=== PATIENT | female | born 1955 | race Caucasian/White ===

== ENCOUNTER 2016-12-09 16:02 | Inpatient (IN) ==
[2016-12-09] MEDS ORDERED: Nitroglycerin 0.4 MG TAB.SUBL SL ONE (16:17)
[2016-12-09] MEDS ORDERED: Aspirin 81 MG TAB.CHEW PO ONE (16:17)
[2016-12-09] MEDS ORDERED: 0.9 % Sodium Chloride 500 ML IVC ONE (16:17)
[2016-12-09] MEDS ORDERED: Ondansetron 4 MG/2 ML VIAL IVP ONE (16:18)
[2016-12-09 16:31] LABS: Basophils # 0.1 K/mcL (0.0-0.2); Basophils % 0.9 %; Eosinophils # 0.4 K/mcL (0.0-0.6); Eosinophils % 4.3 %; Hematocrit 43.5 % (35.3-44.9); Hemoglobin 14.2 g/dL (11.5-15.4); Immature Granulocytes % 0.2 % (0-4); Lymphocytes # 4.6 K/mcL (0.6-4.6); Lymphocytes % 50.3 %; Mean Corpuscular HGB Conc 32.6 g/dL (31.6-35.5); Mean Corpuscular Hemoglobin 29.6 pg (28.0-33.3); Mean Corpuscular Volume 90.8 fL (83.0-100.0); Monocytes # 0.7 K/mcL (0.0-1.3); Monocytes % 7.8 %; Neutrophils # 3.4 K/mcL (1.6-8.9); Platelet Count 300 K/mcL (140-400); Red Blood Count 4.79 M/mcL (3.82-4.97); Red Cell Distribution Width 12.8 % (11.5-14.5); Segmented Neutrophils % 36.5 %
[2016-12-09] MEDS ORDERED: *HR* Ticagrelor 90 MG TABLET PO ONE (16:33)
[2016-12-09 16:40] LABS: Prothrombin Time 10.6 Seconds (9.4-12.1)
[2016-12-09 16:45] LABS: BUN/Creatinine Ratio 19 (6-26); Blood Urea Nitrogen 17 mg/dL (7-20); Calcium 9.8 mg/dL (8.6-10.8); Carbon Dioxide 29 mEq/L (19-29); Chloride 106 mEq/L (98-109); Glucose 154 mg/dL (70-99); Lipase 53 Units/L (8-78); Osmolality,Calculated 297 (280-300); Potassium 3.9 mEq/L (3.5-4.5); Sodium 141 mEq/L (136-145); eGFR For African Americans > 60 (> 60); eGFR For Non-African Americans > 60 (> 60)
[2016-12-09] MEDS ORDERED: Nitroglycerin 25 MG/250 ML INFUS..BTL IVC SCH (16:45)
[2016-12-09] MEDS ORDERED: *HR* Promethazine 25 MG/ML VIAL IVP ONE (17:06)
[2016-12-09 17:11] LABS: Basophils # 0.1 K/mcL (0.0-0.2); Basophils % 0.8 %; Eosinophils # 0.3 K/mcL (0.0-0.6); Hematocrit 39.1 % (35.3-44.9); Hemoglobin 12.7 g/dL (11.5-15.4); Immature Granulocytes % 0.2 % (0-4); Lymphocytes % 48.7 %; Mean Corpuscular HGB Conc 32.5 g/dL (31.6-35.5); Mean Corpuscular Hemoglobin 29.7 pg (28.0-33.3); Mean Corpuscular Volume 91.4 fL (83.0-100.0); Mean Platelet Volume 10.4 fL (9.4-12.4); Monocytes # 0.7 K/mcL (0.0-1.3); Monocytes % 7.9 %; Neutrophils # 3.2 K/mcL (1.6-8.9); Platelet Count 287 K/mcL (140-400); Red Blood Count 4.28 M/mcL (3.82-4.97); Red Cell Distribution Width 12.9 % (11.5-14.5); Segmented Neutrophils % 38.4 %
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
--- NOTE | 2016-12-09 18:14 | Pre-Sedation Evaluation ---
Pre-sedation evaluation - Pre-sedation checklist Date of procedure: 12/09/16 Procedure: [facility] Recent Vitals: Last Vital Signs Temp 97.8 F 12/09/16 16:16 Pulse 62 12/09/16 18:12 Resp 16 12/09/16 18:12 BP 116/83 12/09/16 18:12 Pulse Ox 98 12/09/16 18:12 H&P (including ROS) documented in medical record: Yes Previous reaction to sedatives/anesthetics: No Dietary Status: NPO after Midnight Airway Assessment: Patient can open mouth completely, TMJ function normal ASA Classification *see protocol: CLASS II-Mild systemic disease Plan of Care: Pt appropriate candidate for procedure/moderate/conscious sedation , Risks/benefits of procedure/sedation discussed w/ patient/family
[2016-12-09] MEDS ORDERED: Nitroglycerin 1,000 MCG/10 ML VIAL IV ONE (18:16)
[2016-12-09] MEDS ORDERED: *HR* FentaNYL (PF) 100 MCG/2 ML VIAL ONE (18:16)
[2016-12-09] MEDS ORDERED: *HR* Heparin 10,000 UNIT/10 ML VIAL ONE (18:16)
[2016-12-09] MEDS ORDERED: *HR* Midazolam HCl 2 MG/2 ML VIAL ONE (18:16)
[2016-12-09] MEDS ORDERED: Heparin 1,000 UNITS/500 mL NS 500 ML ONE (18:16)
[2016-12-09] MEDS ORDERED: 0.9 % Sodium Chloride 1,000 ML ONE ×2 (18:16→18:47)
--- NOTE | 2016-12-09 18:22 | Cardiology History & Physical ---
Date of Encounter: 12/09/16 Time of Encounter: 18:00 Assessment and Plan (1) NSTEMI (non-ST elevated myocardial infarction) Current Visit: Yes Status: Acute Ongoing symptoms with regional basal inferior WMA and ischemia on EKG. Emergent LHC. Suspect RCA occlusion. Aspirin, brilinta, heparin. A/R/B of LHC discussed including 1% chance of CVA/CABG/ANGELA/bleeding/contrast reaction. Pt aware and agreeable with proceeding. The assessment and plan as outlined above was discussed with the patient and/or family members who expressed understanding and agreement. All questions were answered. (2) Nicotine dependence Current Visit: Yes Status: Acute nicotine patch. cessation counseled. The assessment and plan as outlined above was discussed with the patient and/or family members who expressed understanding and agreement. All questions were answered. Qualifiers: Nicotine product type: cigarettes Substance use status: uncomplicated Qualified Code(s): F17.210 - Nicotine dependence, cigarettes, uncomplicated (3) Acute electrocardiogram changes Current Visit: Yes Status: Acute stat echo ordered The assessment and plan as outlined above was discussed with the patient and/or family members who expressed understanding and agreement. All questions were answered. History of Present Illness Chief complaint: chest pain HPI: Ms. Vogel is a 61 year old female with no previous cardiac history presenting with sudden onset severe retrosternal chest discomfort while going to a movie. It was associated with dyspnea and diaphoresis. It is minimally improved with NTG/aspirin/brilinta given in the ED. EKG showed ischemia but no diagnostic STEMI. STAT TTE ordered with a focal basal inferior wall hypokinesis, and with ongoing symptoms, brought emergently to the drop crew laborer. Past Med Surg Social Fam HX - Past Medical History Medical history: migraine Psychiatric history: no psych history - Past Surgical History Surgical History: - Social History Smoking Status: Current every day smoker Smokeless Tobacco Status: No Alcohol use: none Drug use: none Medications and Allergies Amitriptyline [Elavil] 20 mg PO HS 12/09/16 [History] Oxycodone HCl/Acetaminophen [Percocet 5-325 mg Tablet] 1 each PO Q8H PRN [History] Propranolol HCl [Inderal LA] 120 mg PO DAILY 12/09/16 [History] SUMAtriptan succinate [Imitrex] 50 mg PO DAILY PRN 12/09/16 [History] Allergies codeine Allergy (Verified 08/21/16 14:35) Nausea All Systems Review: A 10-system review of systems was performed and is negative for pertinent findings except as documented above in the HPI. - Constitutional Constitutional: no chills, no fever(s) - EENT Eyes: no blurred vision, no loss of vision Nose, mouth and throat: no bleeding gums, no epistaxis - Cardiovascular Cardiovascular: chest pain at rest, chest pain with exertion - Respiratory Respiratory: no hemoptysis, no wheezing - Gastrointestinal Gastrointestinal: no hematemesis, no hematochezia - Genitourinary Genitourinary: no dysuria, no hematuria - Musculoskeletal Musculoskeletal: no back pain, no myalgias - Integumentary Integumentary: no erythema, no rash - Neurological Neurological: no abnormal speech, no memory loss - Psychiatric Psychiatric: no anxiety, no depression - Hematological/Lymphatic Hematologic/Lymphatic: no easy bleeding, no easy bruising Physical Examination Vital Signs, Last 4 Hours Temp Pulse Resp BP Pulse Ox 12/09/16 18:12 62 16 116/83 98 12/09/16 18:02 63 18 115/83 99 12/09/16 17:13 63 16 118/69 95 12/09/16 16:16 97.8 F 60 18 150/70 96 General: Conversant, Other (distressed) HEENT: Atraumatic Neck: No JVD Cardiac: Reg Rate and Rhythm Lungs: Normal Breath Sounds Neuro: Alert and responsive, No focal deficits noted Abdomen: Soft Skin: No rashes noted on visualized skin Musculoskeletal: No Chest Wall Tenderness Extremities: No Edema Results 12/09/16 16:49 12/09/16 16:20 Lab Results 12/09/16 12/09/16 12/09/16 16:20 16:20 16:20 WBC 9.2 Hgb 14.2 Hct 43.5 Plt Count 300 INR 1.0 APTT 29.0 Sodium Potassium Chloride Carbon Dioxide BUN Creatinine Glucose Calcium Troponin I B-Natriuretic Peptide 37 Lipase 12/09/16 12/09/16 12/09/16 16:20 16:20 16:49 WBC 8.3 Hgb 12.7 D Hct 39.1 Plt Count 287 INR APTT Sodium 141 Potassium 3.9 Chloride 106 Carbon Dioxide 29 BUN 17 Creatinine 0.90 Glucose 154 H Calcium 9.8 Troponin I 0.06 H* B-Natriuretic Peptide Lipase 53 - EKG Interpretation EKG results cardiology: sinus rhythm (ischemic changes noted)
[2016-12-09] MEDS ORDERED: Ondansetron 4 MG/2 ML VIAL IVP PRN ×2 (18:29→19:41)
[2016-12-09] MEDS ORDERED: *HR* Morphine 2 MG/ML SYRINGE IVP PRN ×2 (18:29→19:41)
[2016-12-09] MEDS ORDERED: DOPamine Premix 0 MG/0 ML BAG ONE (18:45)
[2016-12-09] MEDS ORDERED: Heparin 25,000 UNIT/500 ML D5W 25,000 UNIT/500 ML MLS IVC SCH (19:15)
[2016-12-09] MEDS ORDERED: *HR* Heparin 5,000 UNIT/ML VIAL IVP ONE (19:15)
[2016-12-09] MEDS ORDERED: *HR* Heparin 5,000 UNIT/ML VIAL IVP PRN ×2 (19:15)
[2016-12-09] MEDS ORDERED: Nitroglycerin 0.4 MG TAB.SUBL SL PRN (19:16)
[2016-12-09] MEDS ORDERED: *HR* OxyCODONE/APAP 5/325 TABLET PO PRN ×2 (19:16→23:07)
[2016-12-09] MEDS ORDERED: Acetaminophen 325 MG TABLET PO PRN (19:16)
[2016-12-09] MEDS ORDERED: Sennosides 8.6 MG TABLET PO PRN (19:16)
[2016-12-09] MEDS ORDERED: *HR* Atropine Sulfate 1 MG/10 ML SYRINGE ONE ×2 (19:20→22:00)
--- NOTE | 2016-12-09 19:30 | Invasive Diagnostic Lab Proc ---
Name: Watson Vogel Date of Study: 12/09/2016 Date: 1955 Ht: 63.0in Medical Record#: [id number] Age: 61 Wt: 154.32lb Gender: Female BSA: 1.73 Order #: [id number] BMI: 27.34 Physicians Procedure Physician: Jose Domínguez MD, [facility] Referring MD: Referring MD: Staff Name Position Time In Sites, Dai RT (R) Monitor 06:46 PM Ericka Carbajal RT (R) Scrub 06:46 PM Ling Martinez RN Tire Inspector 06:46 PM Nestor Nunez RN Tire Inspector 06:46 PM Indications Indication Non-Stemi Procedures Performed Procedure L HRT ARTERY/VENTRICLE ANGIO PRQ CARD REVASC VT 1 VSL Pre-Procedure Checklist Informed consent is complete signed and on chart. H&P is on chart. ID band is on and ID verified with patient. Patient NPO for procedure The procedure was described for the patient and questions were answered. Blood Pressure: 116/83 ECG is on chart. Rhythm: NSR Plan of Care Patient will tolerate the procedure without complications. Adequate level of comfort will be maintained. Hemodynamics will remain stable Patient will recover from procedure without complications. Respiratory function will be maintained. Cardiac rhythm will remain stable. Patient temperature will be maintained. Patient and/or family have verbalized understanding of the procedure. Patient Education Chief Complaint/Reason for Test: Cardiac Cath Developmental Category: Adult (18-64 years) Developmentally Appropriate for Age: Yes Learning Barriers: None Education Needs: Procedure Education Method: Verbal Information Taught: Cardiac Cath Educational Evaluation: Able to repeat information Intravenous Access Time IV Size Location DC'd Fluid/Drip Rate Units RN 20g 1 /" Patent On Arrival Lt Antecubital 0.9NaCl 25 ml/hr Nestor Nunez RN Allergies codeine Vital Signs Time BP (mmHg) HR (bpm) O2 Sat. RR (bpm) LOC 116 / 83 62 95 % 16 5 = Fully awake and oriented or at pre-proc level 06:48 PM 132 / 114 108 % 26 06:53 PM 108 / 46 75 95 % 37 07:02 PM 98 / 44 57 97 % 19 07:11 PM 95 / 47 78 97 % 23 Procedural Medications Time Medication Dose Units Method Given By 06:48 PM Versed 2 mg Intravenous Nestor Nunez RN 06:48 PM Fentanyl 25 mcg Intravenous Nestor Nunez RN 06:49 PM Lidocaine 2% 14 ml Subcutaneous Jose Domínguez MD, FACC 06:51 PM Lidocaine 2% 6 ml Subcutaneous Jose Domínguez MD, FACC 06:52 PM Oxygen 2 L/min nasal cannula Nestor Nunez RN 06:57 PM Heparin 4000 units Intravenous Nestor Nunez RN ASA Classification: CLASS II- Mild systemic disease (i.e. well-controlled diabetes, hypertension, asthma, cigarette smoking) Mandi Score Preprocedure Postprocedure Activity 2- Moves 4 extremities sustained head lift Activity 2- Moves 4 extremities sustained head lift Circulation 2- SBP +/= 20 points of pre-anesthetic level Circulation 2- SBP +/= 20 points of pre-anesthetic level Consciousness 2- Awake and alert oriented x 3 Consciousness 2- Awake and alert oriented x 3 O2 Saturation 2- Able to maintain O2 satruation of 92% on room air O2 Saturation 2- Able to maintain O2 satruation of 92% on room air Respiratory 2- Able to deep breathe and cough well Respiratory 2- Able to deep breathe and cough well Total Score 10 Total Score 10 Contrast Agent: Isovue Diagnostic Contrast: 69 ml Total Contrast: 69 ml Fluoro Dose: 141 mGy Procedure Log Time Note Enter By 06:21 PM CathStat 06:43 PM Vitals capture started with the following parameters, Patient=Adult, Interval=5 min, Initial Ilbbsqpg=941 mmHg, Deflation Rate=5 mmHg, Cuff placed on Right Arm 06:44 PM Recorded ECG: HR=49 Condition=Condition 1 06:45 PM Recorded ECG: HR=97 Condition=Condition 1 06:45 PM Vitals capture started with the following parameters, Patient=Adult, Interval=5 min, Initial Vlqfzmjp=953 mmHg, Deflation Rate=5 mmHg, Cuff placed on Right Arm 06:45 PM Pt arrived to laboratory machinist 2 at 18:45 tsites 06:46 PM Dai Patel RT (R) Position: Monitor Time in: 18:46 tsites 06:46 PM Ercika Carbajal RT (R) Position: Scrub Time in: 18:46 tsites 06:46 PM Ling Martinez RN Position: Tire Inspector Time in: 18:46 tsites 06:46 PM Nestor Nunez RN Position: Tire Inspector Time in: 18:46 tsites 06:46 PM Patient charges- Angio tray pack, Navilyst 3mm J, Pulse Oximetry and ACIST tubing and transducer tsites 06:46 PM Case Delayed No tsites 06:47 PM Vitals capture stopped. 06:47 PM Hair removed from procedure site in procedure lab using clippers. Right wrist and right groin prepped with Chloraprep by Ling Martinez RN, safety strap applied then patient was draped. Skin intact. tsites 06:47 PM NIBP STAT measurement started. 06:47 PM Physician arrived 18:47 tsites 06:47 PM Procedure start 18:47 tsites 06:47 PM Time out performed according to hospital policy tsites 06:47 PM Clinical Presentation: Non-STEMI tsites 06:48 PM Time: 18:48 Versed 2 mg Intravenous Given by Nestor Nunez RN tsites 06:48 PM Time: 18:48 Fentanyl 25 mcg Intravenous Given by Nestor Nunez RN tsites 06:48 PM ZO=560 bpm, ZSQZ=704/114 mmhg, Resp=26 B/min 06:49 PM Pressure channel 1 zero failed. 06:49 PM Pressure channel 1 zero failed. 06:49 PM Pressure channel 1 zero failed. 06:49 PM Pressure channel 1 zeroed. 06:49 PM Time: 18:49 14 ml Lidocaine 2% to right groin Subcutaneous Given by Jose Domínguez MD, [facility] tsites 06:52 PM Time: 18:51 6 ml Lidocaine 2% to right groin Subcutaneous Given by Jose Domínguez MD, [facility] tsites 06:52 PM NIBP STAT measurement started. 06:52 PM Time: 18:52 Oxygen on at 2 L/min per nasal cannula by Nestor Nunez RN tsites 06:53 PM HR=75 bpm, IOFL=006/46 mmhg, SpO2=95 %, Resp=37 B/min 06:53 PM 5Fr FL 4 catheter inserted over the wire [facility] tsites 06:53 PM 0.035 145cm Navilyst 3mmJ wire [id number] tsites 06:53 PM Wire removed tsites 06:54 PM Recorded Pressure: Ao, HR=71, Condition=Condition 1 (Aorta) Ao 115/35/63 06:54 PM LCA angiography performed in multiple views. tsites 06:55 PM wire reinserted catheter removed tsites 06:56 PM Inflation device was opened. tsites 06:56 PM 6Fr JR 4 Runway guide catheter was used to cannulate the PCI vessel successfully. reused? No tsites 06:56 PM RCA angiography performed in multiple views. tsites 06:57 PM Time: 18:57 Heparin 4000 units Intravenous Given by Nestor Nunez RN tsites 06:57 PM PCI Status Urgent tsites 06:57 PM PCI Indication: PCI for high risk Non-STEMI or unstable angina tsites 06:57 PM PCI lesion in Mid RCA. tsites 06:57 PM .[address] [place] 182cm guide wire across target lesion- successful. reused? No tsites 06:58 PM 2.25 mm x 15 mm Emerge Monorail balloon across target lesion- successful. reused? No tsites 06:59 PM Balloon inflated @ 8 judy for 15 seconds tsites 06:59 PM NIBP STAT measurement started. 07:00 PM Lesion found in Mid RCA. Pre Stenosis: 99 Pre MARY Flow: 2: Partial Flow/Perfusion (> 1 but < 3) tsites 07:00 PM Lesion found in Proximal LAD. Pre Stenosis: 80 Pre MARY Flow: tsites 07:00 PM Lesion found in Mid LAD. Pre Stenosis: 70 Pre MARY Flow: tsites 07:01 PM Lesion found in 1st Marginal. Pre Stenosis: 70 Pre MARY Flow: tsites 07:01 PM Vitals capture stopped. 07:01 PM NIBP STAT measurement started. 07:02 PM HR=57 bpm, NIBP=98/44 mmhg, SpO2=97 %, Resp=19 B/min 07:02 PM Guide wire removed intact. tsites 07:03 PM Guide Wire reinserted tsites 07:04 PM 2.25x 15 reinserted tsites 07:04 PM Lesion found in Proximal RCA. Pre Stenosis: 70 Pre MARY Flow: tsites 07:04 PM Cardiothoracic surgeon consulted by physician tsites 07:05 PM Balloon inflated @ 10 judy for 15 seconds tsites 07:05 PM Vitals capture started with the following parameters, Patient=Adult, Interval=5 min, Initial Jtglwldr=315 mmHg, Deflation Rate=5 mmHg, Cuff placed on Right Arm 07:05 PM Balloon inflated @ 10 judy for 15 seconds tsites 07:06 PM Guide wire removed intact. tsites 07:07 PM Vitals capture stopped. 07:07 PM NIBP STAT measurement started. 07:07 PM Guide catheter removed intact. tsites 07:07 PM 5Fr Pigtail catheter inserted over the wire C tsites 07:07 PM Catheter selectively placed in left ventricle tsites 07:08 PM Recorded Pressure: LV, HR=88, Condition=Condition 1 (Left Ventricle) LV 74/14/22 07:08 PM Bolus angiogram of left Ventricle complete: 10 ml/sec for a total of 30 mls tsites 07:08 PM Recorded Pressure: LV, Ao, QF=291, Condition=Condition 1 (Left Ventricle) LV 87/10/21, (Aorta) Ao 86/63/75 07:09 PM Catheter removed tsites 07:09 PM Vitals capture stopped. 07:09 PM Bolus angiogram of right Femoral complete: 2 ml/sec for a total of 4 mls tsites 07:09 PM NIBP STAT measurement started. 07:11 PM Procedure completed at 19:11 tsites 07:11 PM HR=78 bpm, NIBP=95/47 mmhg, SpO2=97 %, Resp=23 B/min 07:11 PM Sign out completed: Radiation Dose 141 mGy Fluoro Time: 3.6 Isovue 370 - 500ml contrast 69 ml given by Jose Domínguez MD, [facility]. Complications: NoneCardiac Rehab Consult needed: YesConfirmed administered medications: Yes tsites 07:11 PM Isovue 370 - 500ml,1 Bottle(s) used. tsites 07:11 PM Sheath left in place to be pulled on floor/holding areaV+Pad tsites 07:11 PM Post ECG Atrial Fibrillation tsites 07:11 PM Post Blood Pressure 95/47 tsites 07:14 PM 19:14 Post Pulses Bilateral DP & PT 2+ tsites 07:14 PM Information taught Cardiac Cath tsites 07:14 PM Education needs Procedure, Plan of Care, and Responsibilities of Patient in Care tsites 07:14 PM Learning barriers :None tsites 07:14 PM Education Methods Verbal tsites 07:15 PM Education evaluation Able to repeat information tsites 07:15 PM Site status No bleeding/hematoma - Rt Groin as reported by Ericka Carbajal RT (R) at 19:15 tsites 07:15 PM Opsite applied tsites 07:19 PM Report given to Gilbert CASTILLO Pt taken to ICU Room #5. 19:19 tsites 07:19 PM Delay to floor No tsites 07:19 PM Patient out of room: 19:19 tsites 07:19 PM Family placed in consult room. tsites Complications Complication None Hemodynamics Pressures Site Systolic/A Wave Diastolic/V Wave Mean AO 115 35 63 LV 74 14 22 LV 87 10 21 AO 86 63 75 Post Procedure Information Blood Pressure: 95/47 mmHg Rhythm: Atrial Fibrillation Post procedural instructions were given Surgery consult for CABG Closure Device Time Device Success/Fail 12/09/2016 7:19:00 PM Manual Compression Successful Site Checks Time Location Status Staff Sheath In? Note 07:15 PM Rt Groin No bleeding/hematoma Ericka Carbajal RT (R) Pulses Time Site Pre-Procedure Post-Procedure Note Bilateral DP & PT 1+ 7:14:00 PM Bilateral DP & PT 2+ Updated by Dai Patel RT (R) on 12/09/2016 7:22:43 PM Dai Patel RT electronically signed on 12/09/2016 7:25:51 PM with status of Final
--- NOTE | 2016-12-09 20:54 | Invasive Diagnostic Lab ---
Name: Watson Vogel Date of Study: 12/09/2016 Date: 1955 Ht: 160.0 cm /63.0 in Medical Record#: [id number] Age: 61 Wt: 70. kg / 154.32 lb Account/Order#: [id number] Gender: Female BSA: 1.73 Order #: [id number] Fluoro Dose: 141 mGy BMI: 27.34 Procedure Physician: Jose Domínguez MD, [facility] Referring MD: Referring MD: Procedures Performed: LEFT HEART CATH PCI of Acute CO Right Iliofemoral angiography Indications: Non-Stemi with ongoing angina and dynamic EKG changes Impressions: There is severe three vessel coronary artery disease. The left ventricle is normal and has normal contractility EF 55% Patient had successful PTCA in the mid RCA. To restore MARY 3 flow and resolve angina. Recommendations: Optimal medical therapy of patient's disease. Aggressive risk factor modification. Suggest patient have urgent coronary artery bypass surgery. History/Risk Factors: Current/Recent Smoker Procedure Patient had successful PTCA in the mid RCA to restore MARY 3 flow. Access obtained in the right femoral artery via percutaneous puncture and angiogram via right femoral sheath. Complications: None Contrast: Isovue 69ml Closure Device: Manual Compression Hemodynamics: Pressures Site Systolic/ A Wave Diastolic/ V Wave End Diastolic/ Mean HR AO 115 35 63 71 LV 74 14 22 88 LV 87 10 21 99 AO 86 63 75 106 LV Ventriculography Ejection Method: LV Gram Ejection Fraction: 55% Wall Motion: ROSAS Anterobasal Normal Anterolateral Normal Apical: Normal Inferoapical Normal Inferobasal Moderate hypokinesis Coronary Dominance: right Lesion Findings/Interventions * Left Main Coronary Artery The LMCA is angiographically free of disease. * Left Anterior Descending There is a 70% stenosis in the ostial-Proximal LAD. There is a 70% stenosis in the Mid LAD. * Circumflex There is a 70% stenosis in the 1st Marginal. * Right Coronary Artery There is a long 70% stenosis in the Proximal RCA. There is a 15 mm long, 99% stenosis in the Mid RCA. The lesion has a MARY flow of 2 and has no thrombus present. An intervention was performed on the Mid RCA with a final stenosis of 80%. There were no lesion complications. The final MARY flow was 3. There is a 70% stenosis in the PDA Right iliofemoral angiography shows appropriate sheath placement in [employer]. [employer] with 60-70% stenosis. Interventional Device(s) Vessel Segment Type Name Diameter (mm) Length (mm) Mid RCA Balloon Emerge Monorail 2.25 15 Updated by Dai Patel, RT (R) on 12/09/2016 7:24:26 PM Jose Domínguez MD, FACC electronically signed on 12/09/2016 8:49:41 PM with status of Final
[2016-12-09] MEDS ORDERED: *HR* Ticagrelor 90 MG TABLET PO SCH ×2 (21:00)
[2016-12-09] MEDS: *HR* HYDROcodone/Acet 5/325 mg TABLET PO PRN (21:21)
[2016-12-09] MEDS ORDERED: Nicotine 21 MG PATCH.TD24 TD PRN (23:07)
[2016-12-10 06:09] LABS: Basophils % 0.3 %; Eosinophils # 0.1 K/mcL (0.0-0.6); Eosinophils % 1.2 %; Hemoglobin 11.7 g/dL (11.5-15.4); Immature Granulocytes % 0.3 % (0-4); Lymphocytes % 23.2 %; Mean Corpuscular HGB Conc 33.4 g/dL (31.6-35.5); Mean Corpuscular Hemoglobin 30.1 pg (28.0-33.3); Mean Platelet Volume 10.3 fL (9.4-12.4); Monocytes # 0.7 K/mcL (0.0-1.3); Monocytes % 8.1 %; Neutrophils # 5.8 K/mcL (1.6-8.9); Platelet Count 193 K/mcL (140-400); Red Blood Count 3.89 M/mcL (3.82-4.97); Red Cell Distribution Width 13.2 % (11.5-14.5); Segmented Neutrophils % 66.9 %
[2016-12-10 06:25] LABS: BUN/Creatinine Ratio 25 (6-26); Blood Urea Nitrogen 17 mg/dL (7-20); Calcium 8.9 mg/dL (8.6-10.8); Carbon Dioxide 28 mEq/L (19-29); Chloride 110 mEq/L (98-109); Glucose 116 mg/dL (70-99); Osmolality,Calculated 293 (280-300); Potassium 3.8 mEq/L (3.5-4.5); Sodium 140 mEq/L (136-145); eGFR For African Americans > 60 (> 60); eGFR For Non-African Americans > 60 (> 60)
[2016-12-10 06:39] LABS: Activated Partial Thrombo Time 158.4 Seconds (26.0-36.0)
[2016-12-10 06:45] LABS: Heparin anti-factor XA UFH 0.74 IU/mL (0.30-0.70)
--- NOTE | 2016-12-10 07:33 | Cardiothoracic Consult Note ---
Date of Encounter: 12/10/16 Time of Encounter: 07:29 Assessment and Plan (1) NSTEMI (non-ST elevated myocardial infarction) Current Visit: Yes Status: Acute The patient is a 61-year-old otherwise healthy lady who had sudden onset of neck pain radiating to her retrosternal area yesterday. She had associated shortness of breath, dyspnea on exertion, diaphoresis, and nausea. She was evaluated at [facility] emergency department and found to have an acute NSTEMI. She was given aspirin and Brilinta in the emergency department. She was then taken for an urgent cardiac catheterization and this revealed severe 3 vessel CAD. A 99% mid RCA lesion was ballooned with reestablishment of MARY-3 flow. The patient has been recommended for urgent CABG. Given the fact the patient has received antiplatelet therapy and suffered an inferior MN, the CABG we will be delayed 5 days to allow the antiplatelet effect to dissipate and the inferior wall to recover from the infarction. The cardiac risk calculator shows the patient at an operative mortality risk of 1%, deep sternal wound infection risk 0.36%, permanent stroke risk 0.77%, renal failure risk and 1%, and reoperation risk 4.3%.TThe patient understands procedure, benefits, alternatives, and risks of the procedure and gives her informed consent. Tentatively the CABG will be scheduled for Wednesday, December 14, 2016. The assessment and plan as outlined above was discussed with the patient and/or family members who expressed understanding and agreement. All questions were answered. - History of Present Illness Consult date: 12/09/16 Requesting physician: Jose Domínguez Consult reason: CABG evaluation. Chief complaint: NSTEMI History of present illness: Ms. Vogel is a 61 year old lady with a long history of tobacco abuse who experienced sudden onset of throat pain yesterday while shopping. The patient states that she and her daughter had been to dinner and were waiting for moving to start when she had sudden onset of throat pain which then radiated to her retrosternal area. She had associated shortness of breath, dyspnea on exertion, diaphoresis, and nausea. The patient's daughter states that the patient "lost her color". The patient was taken to [facility] merge department and noted to have ECG changes system with an acute NSTEMI. She was given aspirin and Brilinta. A transthoracic echocardiogram performed in the emergency department revealed inferior hypokinesis and the patient was taken for an urgent cardiac catheterization. Catheterization revealed severe 3 vessel CAD and LVEF 55%. In particular the patient has a 70% ostial LAD lesion, a 70% mid LAD lesion, a 70% proximal OM1 lesion, a 70% proximal RCA lesion, and a 99% mid RCA lesion. The mid RCA lesion was thought to be the culprit lesion and the patient underwent balloon angioplasty with reestablishment of MARY-3 flow. She has been recommended for urgent CABG. Past Med Surg Social Fam HX - Past Medical History Medical history: coronary artery disease, migraine Psychiatric history: no psych history - Past Surgical History Surgical History: , other (Tonsillectomy and adenoidectomy) - Social History Smoking Status: Current every day smoker Packs per day: 1 PPD X 40 years Smokeless Tobacco Status: No Alcohol use: none Drug use: none Occupational status: retired Current living situation: Home - Independent Activity Level: Independent ambulation Recent Out of Country Travel Within the Last 8 Weeks: No Exposure or Possible Exposure to Illness During Travel: No Medications and Allergies Amitriptyline [Elavil] 20 mg PO HS 12/09/16 [History] Oxycodone HCl/Acetaminophen [Percocet 5-325 mg Tablet] 1 each PO Q8H PRN [History] Propranolol HCl [Inderal LA] 120 mg PO DAILY 12/09/16 [History] SUMAtriptan succinate [Imitrex] 50 mg PO DAILY PRN 12/09/16 [History] Allergies codeine Allergy (Verified 08/21/16 14:35) Nausea All Systems Review: A 10-system review of systems was performed and is negative for pertinent findings except as documented above in the HPI. Physical Examination Vital Signs, Last 4 Hours Temp Pulse Resp BP Pulse Ox 12/10/16 06:00 72 18 86/50 95 12/10/16 05:00 67 22 84/51 97 12/10/16 04:00 98.2 F 73 24 98/57 97 General: Conversant, No Apparent Distress HEENT: Atraumatic, Normocephaly, Trachea midline Neck: No JVD, Normal carotid pulses Cardiac: Reg Rate and Rhythm, Normal S1 and S2, No Murmur Lungs: Normal Breath Sounds, No Wheeze, Rales, Rhonchi Neuro: Alert and responsive, No focal deficits noted Vascular: Normal capillary refill Abdomen: Soft, Non-tender Skin: No rashes noted on visualized skin Extremities: No Clubbing, No Cyanosis, No Edema, Normal Pulses Results 12/10/16 06:00 12/10/16 06:00 Lab Results, Last 24 hours 12/10/16 12/10/16 12/10/16 06:00 06:00 06:00 WBC 8.7 Hgb 11.7 Hct 35.0 L Plt Count 193 APTT 158.4 H* D Sodium 140 Potassium 3.8 Chloride 110 H Carbon Dioxide 28 BUN 17 Creatinine 0.68 Glucose 116 H Calcium 8.9 - Imaging Chest Xray: image reviewed (Normal cardiac size. No active pulmonary disease.) Consult Discharge Plan - Plan Referrals: Broderick Durán DO [Primary Care Provider] -
[2016-12-10] MEDS: *HR* HYDROcodone/Acet 5/325 mg TABLET PO PRN ×2 (08:07→13:48)
[2016-12-10] MEDS: Aspirin 81 MG TAB.CHEW PO SCH (08:07)
[2016-12-10] MEDS ORDERED: Aspirin 81 MG TAB.CHEW PO SCH ×2 (09:00)
--- NOTE | 2016-12-10 09:27 | Cardiology Progress Note ---
Date of Encounter: 12/10/16 Time of Encounter: 09:00 Assessment and Plan (1) NSTEMI (non-ST elevated myocardial infarction) Current Visit: Yes Status: Acute Presented to the ED with acute onset chest pain with ECG changes. Troponin 0.06. Due to ongoing symptoms, was urgently taken to laboratory engineer. TTE 12/09/16: LVEF 50% with new basal inferior wall motion abnormality LHC 12/09/16: There is severe three vessel coronary artery disease, EF 55%, successful PTCA in the mid RCA. To restore MARY 3 flow and resolve angina; severe 3vCAD--CT surgery recommended. Reports episode of atypical chest discomfort this AM, now resolved. Plan for CABG on Wednesday to allow for brilinta wash-out, was given po Brilinta load yesterday in ED. Continue IV heparin gtt. Continue asa, statin, and betablocker. Ectopy noted per telemetry review, betablocker started this AM. Check Mag. Keep Mag >2.0 and K >4.0. (2) Nicotine dependence Current Visit: Yes Status: Acute 1+ ppd x40 + years. Nicotine patch, tobacco cessation counseling provided. Qualifiers: Nicotine product type: cigarettes Substance use status: uncomplicated Qualified Code(s): F17.210 - Nicotine dependence, cigarettes, uncomplicated Discussion w patient/family: The assessment and plan as outlined above was discussed with the patient and/or family members who expressed understanding and agreement. All questions were answered. Thank you for involving us in the care of your patient. Please call with any questions. The patient will be discussed and reviewed with Dr. Praful Ortega; changes to be made accordingly. Subjective Principal diagnosis: NSTEMI; MVD Interval history: Seen and examined. Reports episode of anxiety which triggered chest discomfort, now resolved. Reports acute onset neck and chest discomfort that started yesterday which prompted ED evaluation. Plan for CABG on Wednesday to allow for Brilinta wash-out. Objective Vital Signs, Last 4 Hours Temp Pulse Resp BP Pulse Ox 12/10/16 07:55 97.7 F 12/10/16 07:48 66 20 92/45 97 12/10/16 06:00 72 18 86/50 95 General: Conversant, No Apparent Distress HEENT: Atraumatic, Normocephaly, Mucus Membranes Moist Cardiac: Reg Rate and Rhythm, Normal S1 and S2 Lungs: Normal Breath Sounds Neuro: Alert and responsive Abdomen: Soft Skin: No rashes noted on visualized skin Musculoskeletal: No Chest Wall Tenderness Extremities: No Edema, Normal Pulses Results 12/10/16 06:00 12/10/16 06:00 Lab Results 12/10/16 12/10/16 12/10/16 06:00 06:00 06:00 WBC 8.7 Hgb 11.7 Hct 35.0 L Plt Count 193 APTT 158.4 H* D Sodium 140 Potassium 3.8 Chloride 110 H Carbon Dioxide 28 BUN 17 Creatinine 0.68 Glucose 116 H Calcium 8.9 Active Medications Acetaminophen (Tylenol) 650 mg PO Q6HR PRN PRN Reason: Mild Pain Stop: 06/10/17 19:17 Hydrocodone Bitart/Acetaminophen (Alexis 5-325 Mg) 1 tab PO Q4HR PRN PRN Reason: Moderate Pain Stop: 06/10/17 19:17 Last Admin: 12/10/16 08:07 Dose: 1 tab Amitriptyline HCl (Elavil) 20 mg PO HS [facility] Stop: 06/11/17 21:01 Aspirin (Aspirin) 81 mg PO DAILY [facility] Stop: 06/11/17 09:01 Last Admin: 12/10/16 08:07 Dose: 81 mg Atorvastatin Calcium (Lipitor) 80 mg PO HS [facility] Stop: 06/10/17 21:01 Last Admin: 12/09/16 21:22 Dose: 80 mg Chlorhexidine Gluconate (Chlorhexidine Rinse) 15 ml MM BID [facility] Stop: 12/14/16 09:01 Diphenhydramine HCl (Benadryl) 25 mg PO HS PRN PRN Reason: Insomnia Stop: 06/10/17 19:17 Docusate Sodium (Colace) 100 mg PO BID ALLIE PRN Reason: Protocol Stop: 06/10/17 21:01 Last Admin: 12/10/16 08:07 Dose: 100 mg Heparin Sodium (Porcine) (Heparin) 4,000 unit IVP Q6HR PRN PRN Reason: SEE COMMENTS Stop: 06/10/17 19:16 Heparin Sodium (Porcine) (Heparin) 2,000 unit IVP Q6H PRN PRN Reason: SEE COMMENTS Stop: 06/10/17 19:16 Nitroglycerin (Nitroglycerin Premix 25 Mg/250 Ml) 25 mg in 250 mls @ 3 mls/hr IVC .Q24H ALLIE PRN Reason: 5 MCG/MIN Stop: 06/10/17 16:46 Last Infusion: 12/09/16 18:01 Dose: 30 mcg/min, 18 mls/hr Heparin Sodium/Dextrose (Heparin 25,000 Unit/500 Ml D5w) 25,000 unit in 500 mls @ 16.874 mls/hr IVC .Q24H ALLIE; 12 UNIT/KG/HR PRN Reason: Protocol Stop: 06/10/17 19:16 Last Titration: 12/10/16 08:10 Dose: 9 unit/kg/hr, 12.655 mls/hr Cefazolin Sodium 2,000 mg/ (Dextrose) 100 mls @ 200 mls/hr IVPB PREOP ONE PRN Reason: Protocol Stop: 12/14/16 07:29 Metoprolol Tartrate (Lopressor) 25 mg PO BID ALLIE Stop: 06/11/17 09:01 Last Admin: 12/10/16 08:07 Dose: 25 mg Nicotine (Nicoderm) 21 mg TD DAILY PRN; Protocol PRN Reason: Nicotine Cravings Stop: 06/11/17 09:01 Nitroglycerin (Nitroglycerin) 0.4 mg SL Q5MIN PRN PRN Reason: Chest Pain Stop: 06/10/17 19:17 Ondansetron HCl (Zofran) 4 mg IVP Q8HR PRN PRN Reason: Nausea And Vomiting Stop: 06/10/17 18:30 Oxycodone/Acetaminophen (Percocet 5/325) 1 each PO Q4HR PRN PRN Reason: Severe Pain Stop: 06/10/17 19:17 Oxycodone/Acetaminophen (Percocet 5/325) 1 each PO Q8H PRN PRN Reason: Pain Stop: 06/10/17 23:08 Senna (Senna) 17.2 mg PO HS PRN PRN Reason: Constipation Stop: 06/10/17 19:17 - Imaging and Cardiology Echo: report reviewed Cardiac cath: report reviewed Other Results: 12 hour tele: avg HR=73 SR. Frequent NSVT, max 6 beats. - EKG Interpretation EKG results cardiology: personally reviewed Consult Discharge Plan - Plan Referrals: Colopy,Broderick Coello DO [Primary Care Provider] -
[2016-12-10 09:52] LABS: Magnesium 1.5 mg/dL (1.6-2.6)
--- NOTE | 2016-12-10 10:26 | Electrocardiograph Report ---
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
--- NOTE | 2016-12-10 10:27 | Electrocardiograph Report ---
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
[2016-12-10 18:08] LABS: Bilirubin,Urine Negative (Negative); Blood,Urine Negative (Negative); Clarity,Urine Clear (Clear); Color,Urine Yellow (Yellow); Glucose,Urine (UA) Normal (Normal); Ketones,Urine Negative (Negative); Leukocyte Esterase,Urine Negative (Negative); Nitrite,Urine Negative (Negative); PH,Urine 5.5 pH Units (5.0-8.0); Protein,Urine Negative (Neg-Trace); Specific Gravity,Urine > 1.030 (1.010-1.025); Urobilinogen,Urine Normal (Normal)
--- NOTE | 2016-12-11 07:45 | Cardiothoracic Progress Note ---
Date of Encounter: 12/11/16 Time of Encounter: 07:43 - Assessment and plan (1) NSTEMI (non-ST elevated myocardial infarction) Current Visit: Yes Status: Acute The assessment and plan as outlined above was discussed with the patient and/or family members who expressed understanding and agreement. All questions were answered. The patient is scheduled for open heart surgery on Wednesday. She did receive blood thinner angina waiting for this to dissipate. - Subjective Interval history: The patient has no angina and no chest pain. Vital Signs, Last 4 Hours Temp Pulse Resp BP Pulse Ox 12/11/16 06:00 69 18 91/49 94 12/11/16 05:00 68 18 101/54 94 12/11/16 04:00 71 24 104/52 96 12/11/16 03:57 98.4 F Oxgyen Flow Rate Oxygen Flow Rate (LPM) 2 Clinical Data, last 8 Hours Output, Urine Amount 300 Weight 12/09/16 12/10/16 12/11/16 23:59 23:59 23:59 Weight 72.364 kg 72.975 kg Lungs are clear to percussion and auscultation. Heart is in a normal sinus rhythm. - Labs 12/10/16 06:00 12/10/16 06:00 Lab Results, Last 24 hours 12/10/16 12/10/16 12/11/16 06:00 15:44 00:59 APTT 34.9 D 89.3 H D Sodium 140 Potassium 3.8 Chloride 110 H Carbon Dioxide 28 BUN 17 Creatinine 0.68 Glucose 116 H Calcium 8.9 Magnesium 1.5 L Consult Discharge Plan - Plan Referrals: Broderick Durán DO [Primary Care Provider] -
[2016-12-11] MEDS: Aspirin 81 MG TAB.CHEW PO SCH (08:49)
--- NOTE | 2016-12-11 10:21 | Cardiology Progress Note ---
Date of Encounter: 12/11/16 Time of Encounter: 10:17 Assessment and Plan (1) NSTEMI (non-ST elevated myocardial infarction) Current Visit: Yes Status: Acute Presented to the ED with acute onset chest pain with ECG changes. Troponin 0.06. Due to ongoing symptoms, was urgently taken to [facility]. TTE 12/09/16: LVEF 50% with new basal inferior wall motion abnormality LHC 12/09/16: There is severe three vessel coronary artery disease, EF 55%, successful PTCA in the mid RCA. To restore MARY 3 flow and resolve angina; severe 3vCAD--CT surgery recommended. Denies any chest pain overnight. Plan for CABG on Wednesday to allow for brilinta wash-out, was given po Brilinta load in ED. Continue IV heparin gtt. Continue asa, statin, and betablocker. BB started yesterday. Will decrease to 12.5mg BID. Keep Mag >2.0 and K >4.0. Mag 1.5. Replace. Transfer out of ICU today. (2) Nicotine dependence Current Visit: Yes Status: Acute 1+ ppd x40 + years. Nicotine patch, tobacco cessation counseling provided. Qualifiers: Nicotine product type: cigarettes Substance use status: uncomplicated Qualified Code(s): F17.210 - Nicotine dependence, cigarettes, uncomplicated Discussion w patient/family: The assessment and plan as outlined above was discussed with the patient and/or family members who expressed understanding and agreement. All questions were answered. Thank you for involving us in the care of your patient. Please call with any questions. Subjective Principal diagnosis: NSTEMI; MVD Interval history: Pt denies any acute complaints this AM. Denies chest pain or dyspnea. Objective Vital Signs, Last 4 Hours Temp Pulse Resp BP Pulse Ox 12/11/16 09:00 72 20 91/57 96 12/11/16 08:29 71 12/11/16 07:45 98.2 F 12/11/16 07:00 71 20 111/56 95 Vital Signs Temp Pulse Resp BP Pulse Ox 12/11/16 09:00 72 20 91/57 96 12/11/16 08:29 71 12/11/16 07:45 98.2 F 12/11/16 07:00 71 20 111/56 95 12/11/16 06:00 69 18 91/49 94 12/11/16 05:00 68 18 101/54 94 12/11/16 04:00 71 24 104/52 96 12/11/16 03:57 98.4 F 12/11/16 02:00 71 18 92/80 94 12/11/16 01:00 72 18 89/49 94 12/11/16 00:00 69 18 104/58 95 12/10/16 23:10 98.2 F 12/10/16 23:00 74 20 92/39 94 12/10/16 22:00 73 18 82/45 94 12/10/16 21:00 70 23 120/42 94 12/10/16 20:36 97.9 F 12/10/16 20:00 69 20 89/55 99 12/10/16 18:00 69 20 91/63 99 12/10/16 17:00 66 19 90/45 98 12/10/16 16:24 97.8 F 12/10/16 13:00 67 71 91/59 12/10/16 12:00 59 19 94/44 97 12/10/16 11:00 70 19 84/45 97 Intake and Output 12/10/16 12/11/16 12/11/16 23:59 07:59 15:59 Intake Total 579 / 579 264 / 264 Output Total 600 / 600 600 / 600 Balance -21 / -21 -336 / -336 Intake: IV Fluids 99 / 99 144 / 144 Heparin 25,000 UNIT/500 99 / 99 144 / 144 ML D5W 25,000 unit In 500 ml @ 12 UNIT/KG/HR 16. 874 mls/hr IVC .Q24H [facility] Rx#:[id number] Oral 480 / 480 120 / 120 Output: Urine 600 / 600 600 / 600 Other: Weight 72.975 kg Patient Weight 12/11/16 23:59 Weight 72.975 kg General: Conversant, No Apparent Distress HEENT: Atraumatic, Normocephaly, Mucus Membranes Moist Neck: No JVD, Normal carotid pulses Cardiac: Reg Rate and Rhythm, Normal S1 and S2, No Murmur Lungs: Normal Breath Sounds, No Wheeze, Rales, Rhonchi Neuro: Alert and responsive, No focal deficits noted Abdomen: Soft, Non-Tender Skin: No rashes noted on visualized skin Musculoskeletal: No Chest Wall Tenderness Extremities: No Clubbing, No Cyanosis, No Edema, Normal Pulses Results 12/10/16 06:00 12/10/16 06:00 Lab Results 12/10/16 12/11/16 12/11/16 15:44 00:59 09:02 APTT 34.9 D 89.3 H D 70.2 H Urine 12/10/16 Range/Units 17:45 Urine Color Yellow (Yellow) Urine Clarity Clear (Clear) Urine pH 5.5 (5.0-8.0) pH Units Ur Specific [place] > 1.030 H (1.010-1.025) Urine Protein Negative (Neg-Trace) mg/dL Urine Glucose (UA) Normal (Normal) mg/dL Active Medications Acetaminophen (Tylenol) 650 mg PO Q6HR PRN PRN Reason: Mild Pain Stop: 06/10/17 19:17 Hydrocodone Bitart/Acetaminophen ([place] 5-325 Mg) 1 tab PO Q4HR PRN PRN Reason: Moderate Pain Stop: 06/10/17 19:17 Last Admin: 12/10/16 13:48 Dose: 1 tab Amitriptyline HCl (Elavil) 20 mg PO HS ALLIE Stop: 06/11/17 21:01 Last Admin: 12/10/16 20:52 Dose: 20 mg Aspirin (Aspirin) 81 mg PO DAILY ALLIE Stop: 06/11/17 09:01 Last Admin: 12/11/16 08:49 Dose: 81 mg Atorvastatin Calcium (Lipitor) 80 mg PO HS ALLIE Stop: 06/10/17 21:01 Last Admin: 12/10/16 20:51 Dose: 80 mg Chlorhexidine Gluconate (Chlorhexidine Rinse) 15 ml MM BID ALLIE Stop: 12/14/16 09:01 Diphenhydramine HCl (Benadryl) 25 mg PO HS PRN PRN Reason: Insomnia Stop: 06/10/17 19:17 Docusate Sodium (Colace) 100 mg PO BID ALLIE PRN Reason: Protocol Stop: 06/10/17 21:01 Last Admin: 12/11/16 08:49 Dose: 100 mg Heparin Sodium (Porcine) (Heparin) 4,000 unit IVP Q6HR PRN PRN Reason: SEE COMMENTS Stop: 06/10/17 19:16 Last Admin: 12/10/16 17:44 Dose: 4,000 unit Heparin Sodium (Porcine) (Heparin) 2,000 unit IVP Q6H PRN PRN Reason: SEE COMMENTS Stop: 06/10/17 19:16 Nitroglycerin (Nitroglycerin Premix 25 Mg/250 Ml) 25 mg in 250 mls @ 3 mls/hr IVC .Q24H [facility]IE PRN Reason: 5 MCG/MIN Stop: 06/10/17 16:46 Last Infusion: 12/09/16 18:01 Dose: 30 mcg/min, 18 mls/hr Heparin Sodium/Dextrose (Heparin 25,000 Unit/500 Ml D5w) 25,000 unit in 500 mls @ 16.874 mls/hr IVC .Q24H ALLIE; 12 UNIT/KG/HR PRN Reason: Protocol Stop: 06/10/17 19:16 Last Titration: 12/11/16 02:33 Dose: 13 unit/kg/hr, 18.28 mls/hr Cefazolin Sodium 2,000 mg/ (Dextrose) 100 mls @ 200 mls/hr IVPB PREOP ONE PRN Reason: Protocol Stop: 12/14/16 07:29 Metoprolol Tartrate (Lopressor) 25 mg PO BID ALLIE Stop: 06/11/17 09:01 Last Admin: 12/11/16 08:50 Dose: 25 mg Nicotine (Nicoderm) 21 mg TD DAILY PRN; Protocol PRN Reason: Nicotine Cravings Stop: 06/11/17 09:01 Nitroglycerin (Nitroglycerin) 0.4 mg SL Q5MIN PRN PRN Reason: Chest Pain Stop: 06/10/17 19:17 Ondansetron HCl (Zofran) 4 mg IVP Q8HR PRN PRN Reason: Nausea And Vomiting Stop: 06/10/17 18:30 Oxycodone/Acetaminophen (Percocet 5/325) 1 each PO Q4HR PRN PRN Reason: Severe Pain Stop: 06/10/17 19:17 Senna (Senna) 17.2 mg PO HS PRN PRN Reason: Constipation Stop: 06/10/17 19:17 - Imaging and Cardiology Echo: report reviewed Cardiac cath: report reviewed - EKG Interpretation EKG results cardiology: other (12 hr tele AVG HR 71, SR, no significant pauses or arrhythmias) Consult Discharge Plan - Plan Referrals: ColBroderick harry DO [Primary Care Provider] -
[2016-12-11] MEDS ORDERED: Nitroglycerin 0.4 MG TAB.SUBL SL PRN (11:10)
[2016-12-11] MEDS ORDERED: Sennosides 8.6 MG TABLET PO PRN (11:10)
[2016-12-11] MEDS ORDERED: Acetaminophen 325 MG TABLET PO PRN (11:10)
[2016-12-11] MEDS ORDERED: *HR* Heparin 5,000 UNIT/ML VIAL IVP PRN ×2 (11:10)
[2016-12-11] MEDS ORDERED: Ondansetron 4 MG/2 ML VIAL IVP PRN (11:10)
[2016-12-11] MEDS ORDERED: *HR* HYDROcodone/Acet 5/325 mg TABLET PO PRN (11:10)
[2016-12-11] MEDS ORDERED: Nicotine 21 MG PATCH.TD24 TD PRN (11:10)
[2016-12-11] MEDS ORDERED: Magnesium Sulfate 2 GM in D5% in Water 100 ML IVPB ONE (11:24)
--- NOTE | 2016-12-11 12:49 | Anesthesia Evaluation PreOp ---
Date of Encounter: 12/14/16 Time of Encounter: 08:05 - Past History Planned Operation: CABG Cardiac History: [place] (acute NSTEMI- inferior), Angina, HTN Pulmonary History: Smoker, Pack/yr (1ppd x 40yrs) VIDEO JOURNALIST History: Other (Migraines) Other Medical History: Denies Any Significant HX Anesthesia History: No Prior Anesthetic Complications, Past Anesthesia (C/S, T&A ) Alcohol Use: none Drug use: none Medications and Allergies Amitriptyline [Elavil] 20 mg PO HS 12/09/16 [History] Oxycodone HCl/Acetaminophen [Percocet 5-325 mg Tablet] 1 each PO Q8H PRN [History] Propranolol HCl [Inderal LA] 120 mg PO DAILY 12/09/16 [History] SUMAtriptan succinate [Imitrex] 50 mg PO DAILY PRN 12/09/16 [History] Allergies codeine Allergy (Verified 08/21/16 14:35) Nausea nitroglycerin Adverse Reaction (Verified 12/14/16 06:48) Unresponsive - Meds/Allergy Pre-op Review Medications Reviewed: Yes Allergies Reviewed: Yes Beta Blockers on Current Med List: Yes If Beta Blockers taken, Date/Time (Last Dose taken): 634 on 12/14/16 Anesthesia Results - Labs 12/12/16 03:46 12/12/16 03:46 - Imaging EKG: report reviewed Chest x-ray: report reviewed Additional studies: cath shows 3 [id number] disease with EF 55%, Anesthesia Exam Selected Entries 12/14/16 05:07 Temperature 98.3 F Pulse Rate 79 Respiratory Rate 17 Blood Pressure 98/52 O2 Sat by Pulse Oximetry 90 Oxygen Delivery Method Room Air Weight: 48kg NPO (# of Hours): >8 Pain Scale: 0 Pain Scale Used: Numeric (1 - 10) - HEENT Pupil (Motor): EOMI Mallampati: II Teeth: Normal Oral Opening: Greater than 3 - VIDEO JOURNALIST LOC: Oriented VIDEO JOURNALIST Motor: Normal RUE, Normal LUE, Normal RLE, Normal LLE, Normal Face VIDEO JOURNALIST Sensory: Normal: RUE, LUE, RLE, LLE, Face - Cardiac Rhythm: Regular Murmur: None - Pulmonary Breath Sounds: bilateral Clear Respiratory Effort: Symmetrical Anesthesia Assess/Plan ASA Score: 3 Modified Vika Scale for Level of Consciousness: Cooperative, oriented, and tranquil Anesthetic Plan: General Monitoring Plan: Standard Monitors, A-Line, PAC, ISRAEL Recovery Plan: ICU (Discussed risks of GA, lines, [place], and blood products. Questions answered and agrees to proceed.)
[2016-12-11] MEDS: Nitroglycerin 25 MG/250 ML INFUS..BTL IVC SCH (12:54)
[2016-12-11] MEDS: Heparin 25,000 UNIT/500 ML D5W 25,000 UNIT/500 ML MLS IVC SCH (14:09)
[2016-12-12 04:09] LABS: Basophils % 0.5 %; Hemoglobin 11.6 g/dL (11.5-15.4); Immature Granulocytes % 0.3 % (0-4); Platelet Count 179 K/mcL (140-400); Red Cell Distribution Width 12.9 % (11.5-14.5)
[2016-12-12 04:12] LABS: Eosinophils # 0.2 K/mcL (0.0-0.6); Eosinophils % 2.8 %; Hematocrit 34.3 % (35.3-44.9); Lymphocytes # 2.6 K/mcL (0.6-4.6); Mean Corpuscular HGB Conc 33.8 g/dL (31.6-35.5); Mean Corpuscular Hemoglobin 30.1 pg (28.0-33.3); Mean Corpuscular Volume 89.1 fL (83.0-100.0); Mean Platelet Volume 10.5 fL (9.4-12.4); Monocytes # 0.5 K/mcL (0.0-1.3); Monocytes % 7.8 %; Neutrophils # 3.2 K/mcL (1.6-8.9); Red Blood Count 3.85 M/mcL (3.82-4.97); Segmented Neutrophils % 48.6 %
[2016-12-12 04:18] LABS: BUN/Creatinine Ratio 18 (6-26); Blood Urea Nitrogen 13 mg/dL (7-20); Calcium 9.1 mg/dL (8.6-10.8); Carbon Dioxide 26 mEq/L (19-29); Chloride 107 mEq/L (98-109); Glucose 108 mg/dL (70-99); Osmolality,Calculated 293 (280-300); Potassium 3.5 mEq/L (3.5-4.5); Sodium 141 mEq/L (136-145); eGFR For African Americans > 60 (> 60); eGFR For Non-African Americans > 60 (> 60)
[2016-12-12] MEDS: Aspirin 81 MG TAB.CHEW PO SCH (07:57)
--- NOTE | 2016-12-12 09:05 | Cardiothoracic Progress Note ---
Date of Encounter: 12/12/16 Time of Encounter: 09:04 - Assessment and plan (1) NSTEMI (non-ST elevated myocardial infarction) Current Visit: Yes Status: Acute The patient is scheduled for surgery on Wednesday. She has no questions. - Subjective Interval history: The patient has no recent angina or chest pain. She has no complaints. Vital Signs, Last 4 Hours Temp Pulse Resp BP Pulse Ox 12/12/16 07:50 98.0 F 67 17 99/62 94 Oxgyen Flow Rate Oxygen Flow Rate (LPM) 0 Clinical Data, last 8 Hours Output, Urine Amount 225 Weight 12/10/16 12/11/16 12/12/16 23:59 23:59 23:59 Weight 72.975 kg 74 kg Lungs are clear to percussion and auscultation. Heart is in a normal sinus rhythm. - Labs 12/12/16 03:46 12/12/16 03:46 Lab Results, Last 24 hours 12/11/16 12/11/16 12/12/16 09:02 16:38 03:46 WBC 6.5 Hgb 11.6 Hct 34.3 L Plt Count 179 APTT 70.2 H 71.2 H Sodium Potassium Chloride Carbon Dioxide BUN Creatinine Glucose Calcium 12/12/16 12/12/16 03:46 03:46 WBC Hgb Hct Plt Count APTT 64.3 H Sodium 141 Potassium 3.5 Chloride 107 Carbon Dioxide 26 BUN 13 Creatinine 0.72 Glucose 108 H Calcium 9.1 Consult Discharge Plan - Plan Referrals: Broderick Durán DO [Primary Care Provider] -
--- NOTE | 2016-12-12 09:46 | Cardiology Progress Note ---
Date of Encounter: 12/12/16 Time of Encounter: 09:44 Assessment and Plan (1) NSTEMI (non-ST elevated myocardial infarction) Current Visit: Yes Status: Acute Presented to the ED with acute onset chest pain with ECG changes. Troponin 0.06. Due to ongoing symptoms, was urgently taken to [facility]. TTE 12/09/16: LVEF 50% with new basal inferior wall motion abnormality LHC 12/09/16: There is severe three vessel coronary artery disease, EF 55%, successful PTCA in the mid RCA. To restore MARY 3 flow and resolve angina; severe 3vCAD--CT surgery recommended. Denies any chest pain overnight. Plan for CABG on Wednesday to allow for brilinta wash-out, was given po Brilinta load in ED. Continue IV heparin gtt. Continue asa, statin, and betablocker. K 3.5, will replace. (2) Nicotine dependence Current Visit: Yes Status: Acute 1+ ppd x40 + years. Nicotine patch, tobacco cessation counseling provided. Qualifiers: Nicotine product type: cigarettes Substance use status: uncomplicated Qualified Code(s): F17.210 - Nicotine dependence, cigarettes, uncomplicated Discussion w patient/family: The assessment and plan as outlined above was discussed with the patient and/or family members who expressed understanding and agreement. All questions were answered. Thank you for involving us in the care of your patient. Please call with any questions. Subjective Principal diagnosis: NSTEMI; MVD Interval history: Pt denies any acute complaints this AM. Denies chest pain or dyspnea. Objective Vital Signs, Last 4 Hours Temp Pulse Resp BP Pulse Ox 12/12/16 07:50 98.0 F 67 17 99/62 94 Vital Signs Temp Pulse Resp BP Pulse Ox 12/12/16 07:50 98.0 F 67 17 99/62 94 12/12/16 04:25 98.0 F 66 20 102/46 90 12/12/16 00:45 98.8 F 77 18 132/65 94 12/11/16 23:57 69 12/11/16 20:42 68 12/11/16 19:19 98.0 F 68 17 107/48 96 12/11/16 15:01 63 12/11/16 14:45 98.0 F 67 18 99/69 98 12/11/16 11:57 98.1 F 12/11/16 11:03 65 12/11/16 11:00 65 20 119/47 95 Intake and Output 12/11/16 12/12/16 12/12/16 23:59 07:59 15:59 Intake Total 60 / 60 0 / 0 360 / 360 Output Total 500 / 500 200 / 200 225 / 225 Balance -440 / -440 -200 / -200 135 / 135 Intake: IV Fluids 0 / 0 0 / 0 Heparin 25,000 UNIT/500 0 / 0 0 / 0 ML D5W 25,000 unit In 500 ml @ 12 UNIT/KG/HR 16. 874 mls/hr IVC .Q24H [facility] Rx#:[id number] Oral 60 / 60 360 / 360 Output: Urine 500 / 500 200 / 200 225 / 225 Other: Meal Dinner Breakfast Percent of Meal Consumed 10% 90% Stool Size Moderate Moderate Stool Consistency formed soft Stool Color Brown Brown # Bowel Movements 1 Weight 74 kg Patient Weight 12/12/16 23:59 Weight 74 kg General: Conversant, No Apparent Distress HEENT: Atraumatic, Normocephaly, Mucus Membranes Moist Neck: No JVD, Normal carotid pulses Cardiac: Reg Rate and Rhythm, Normal S1 and S2, No Murmur Lungs: Normal Breath Sounds, No Wheeze, Rales, Rhonchi Neuro: Alert and responsive, No focal deficits noted Abdomen: Soft, Non-Tender Skin: No rashes noted on visualized skin Musculoskeletal: No Chest Wall Tenderness Extremities: No Clubbing, No Cyanosis, No Edema, Normal Pulses Results 12/12/16 03:46 12/12/16 03:46 Lab Results 12/11/16 12/12/16 12/12/16 16:38 03:46 03:46 WBC 6.5 Hgb 11.6 Hct 34.3 L Plt Count 179 APTT 71.2 H Sodium 141 Potassium 3.5 Chloride 107 Carbon Dioxide 26 BUN 13 Creatinine 0.72 Glucose 108 H Calcium 9.1 12/12/16 03:46 WBC Hgb Hct Plt Count APTT 64.3 H Sodium Potassium Chloride Carbon Dioxide BUN Creatinine Glucose Calcium Short CBC 12/12/16 Range/Units 03:46 WBC 6.5 (4.3-11.1) K/mcL Hgb 11.6 (11.5-15.4) g/dL Hct 34.3 L (35.3-44.9) % Plt Count 179 (140-400) K/mcL Neutrophils # 3.2 (1.6-8.9) K/mcL BMP 12/12/16 Range/Units 03:46 Sodium 141 (136-145) mEq/L Potassium 3.5 (3.5-4.5) mEq/L Chloride 107 (98-109) mEq/L Carbon Dioxide 26 (19-29) mEq/L BUN 13 (7-20) mg/dL Creatinine 0.72 (0.57-1.11) mg/dL Glucose 108 H (70-99) mg/dL Calcium 9.1 (8.6-10.8) mg/dL Active Medications Acetaminophen (Tylenol) 650 mg PO Q6HR PRN PRN Reason: Mild Pain Stop: 06/10/17 19:17 Hydrocodone Bitart/Acetaminophen ([place] 5-325 Mg) 1 tab PO Q4HR PRN PRN Reason: Moderate Pain Stop: 06/10/17 19:17 Amitriptyline HCl (Elavil) 20 mg PO HS ALLIE Stop: 06/11/17 21:01 Last Admin: 12/11/16 20:30 Dose: 20 mg Aspirin (Aspirin) 81 mg PO DAILY ALLIE Stop: 06/11/17 09:01 Last Admin: 12/12/16 07:57 Dose: 81 mg Atorvastatin Calcium (Lipitor) 80 mg PO HS ALLIE Stop: 06/10/17 21:01 Last Admin: 12/11/16 20:30 Dose: 80 mg Chlorhexidine Gluconate (Chlorhexidine Rinse) 15 ml MM BID ALLIE Stop: 12/14/16 09:01 Diphenhydramine HCl (Benadryl) 25 mg PO HS PRN PRN Reason: Insomnia Stop: 06/10/17 19:17 Docusate Sodium (Colace) 100 mg PO BID ALLIE PRN Reason: Protocol Stop: 06/10/17 21:01 Last Admin: 12/12/16 07:57 Dose: 100 mg Heparin Sodium (Porcine) (Heparin) 4,000 unit IVP Q6HR PRN PRN Reason: SEE COMMENTS Stop: 06/10/17 19:16 Heparin Sodium (Porcine) (Heparin) 2,000 unit IVP Q6H PRN PRN Reason: SEE COMMENTS Stop: 06/10/17 19:16 Cefazolin Sodium 2,000 mg/ (Dextrose) 100 mls @ 200 mls/hr IVPB PREOP ONE PRN Reason: Protocol Stop: 12/14/16 07:29 Heparin Sodium/Dextrose (Heparin 25,000 Unit/500 Ml D5w) 25,000 unit in 500 mls @ 16.874 mls/hr IVC .Q24H ALLIE; 12 UNIT/KG/HR PRN Reason: Protocol Stop: 06/10/17 19:16 Last Titration: 12/12/16 04:56 Dose: 12.01 unit/kg/hr, 16.9 mls/hr Nitroglycerin (Nitroglycerin Premix 25 Mg/250 Ml) 25 mg in 250 mls @ 3 mls/hr IVC .Q24H [facility] PRN Reason: 5 MCG/MIN Stop: 06/10/17 16:46 Last Admin: 12/11/16 12:54 Dose: Not Given Metoprolol Tartrate (Lopressor) 12.5 mg PO BID ALLIE Stop: 06/12/17 21:01 Last Admin: 12/12/16 07:57 Dose: 12.5 mg Nicotine (Nicoderm) 21 mg TD DAILY PRN; Protocol PRN Reason: Nicotine Cravings Stop: 06/11/17 09:01 Nitroglycerin (Nitroglycerin) 0.4 mg SL Q5MIN PRN PRN Reason: Chest Pain Stop: 06/10/17 19:17 Ondansetron HCl (Zofran) 4 mg IVP Q8HR PRN PRN Reason: Nausea And Vomiting Stop: 06/10/17 18:30 Oxycodone/Acetaminophen (Percocet 5/325) 1 each PO Q4HR PRN PRN Reason: Severe Pain Stop: 06/10/17 19:17 Senna (Senna) 17.2 mg PO HS PRN PRN Reason: Constipation Stop: 06/10/17 19:17 - Imaging and Cardiology Echo: report reviewed Cardiac cath: report reviewed - EKG Interpretation EKG results cardiology: other (12 hr tele AVG HR 68, SR, no significant pauses or arrhythmias.) Consult Discharge Plan - Plan Referrals: ColBroderick harry DO [Primary Care Provider] -
[2016-12-12] MEDS: Nitroglycerin 25 MG/250 ML INFUS..BTL IVC SCH (11:31)
[2016-12-12] MEDS: Heparin 25,000 UNIT/500 ML D5W 25,000 UNIT/500 ML MLS IVC SCH (14:52)
[2016-12-13] MEDS: Aspirin 81 MG TAB.CHEW PO SCH (07:55)
--- NOTE | 2016-12-13 09:26 | Cardiothoracic Progress Note ---
Date of Encounter: 12/13/16 Time of Encounter: 09:24 - Assessment and plan (1) NSTEMI (non-ST elevated myocardial infarction) Current Visit: Yes Status: Acute The patient is scheduled for open heart surgery tomorrow. She has no questions. We will discontinue her heparin drip at 5:00 tomorrow morning. - Subjective Interval history: The patient has no chest pain and no angina. Vital Signs, Last 4 Hours Temp Pulse Resp BP Pulse Ox 12/13/16 08:07 67 12/13/16 07:35 97.8 F 81 18 107/58 94 Oxgyen Flow Rate Oxygen Flow Rate (LPM) 0 Clinical Data, last 8 Hours Output, Urine Amount 200 Weight 12/11/16 12/12/16 12/13/16 23:59 23:59 23:59 Weight 72.975 kg 74 kg 48.2 kg Lungs are clear to percussion and auscultation. Heart is in a normal sinus rhythm. - Labs 12/12/16 03:46 12/12/16 03:46 Lab Results, Last 24 hours 12/13/16 01:23 APTT 62.4 H Consult Discharge Plan - Plan Referrals: Broderick Durán DO [Primary Care Provider] -
[2016-12-13] MEDS ORDERED: *HR* Heparin 5,000 UNIT/ML VIAL IVP PRN ×2 (09:40)
[2016-12-13] MEDS ORDERED: Heparin 25,000 UNIT/500 ML D5W 25,000 UNIT/500 ML MLS IVC SCH (09:45)
[2016-12-13] MEDS: Nitroglycerin 25 MG/250 ML INFUS..BTL IVC SCH (10:38)
[2016-12-13] MEDS ORDERED: Chlorhexidine Rinse 15 ML MOUTHWASH MM SCH (21:00)
[2016-12-13] MEDS: Chlorhexidine Rinse 15 ML MOUTHWASH MM SCH (21:49)
[2016-12-14] MEDS: Chlorhexidine Rinse 15 ML MOUTHWASH MM SCH ×2 (06:35→21:10)
[2016-12-14] MEDS: Aspirin 81 MG TAB.CHEW PO SCH (06:35)
[2016-12-14] MEDS ORDERED: ceFAZolin 2,000 MG in D5% in Water 100 ML IVPB ONE ×2 (07:00)
[2016-12-14] MEDS ORDERED: Protamine Sulfate 250 MG/25 ML VIAL IVP ONE (07:39)
[2016-12-14] MEDS ORDERED: Famotidine 20 MG/2 ML VIAL ONE (07:39)
[2016-12-14] MEDS ORDERED: *HR* Norepinephrine 4 MG/4 ML VIAL IVC ONE (07:39)
[2016-12-14] MEDS ORDERED: *HR* Etomidate 20 MG/10 ML AMPUL IVP ONE (07:39)
[2016-12-14] MEDS ORDERED: *HR* Phenylephrine 10 MG/ML VIAL ONE (07:39)
[2016-12-14] MEDS ORDERED: Tranexamic Acid 1,000 MG/10 ML VIAL ONE ×2 (07:39→11:43)
[2016-12-14] MEDS ORDERED: *HR* Rocuronium Bromide 50 MG/5 ML VIAL ONE ×2 (07:39→12:07)
[2016-12-14] MEDS ORDERED: *HR* Midazolam HCl 5 MG/5 ML VIAL IVP ONE ×2 (07:45→12:07)
[2016-12-14] MEDS ORDERED: *HR* FentaNYL (PF) 1,000 MCG/20 ML VIAL ONE (07:46)
[2016-12-14] MEDS ORDERED: Nitroglycerin 25 MG/250 ML INFUS..BTL IVC ONE ×2 (07:51→12:00)
[2016-12-14] MEDS ORDERED: NiCARdipine 2.5 MG/10 ML Syringe IVPB ONE (07:52)
--- NOTE | 2016-12-14 09:52 | Anesthesia Procedures ---
Date of Encounter: 12/14/16 Time of Encounter: 08:45 Procedures: Anesthesia - Arterial Line Consent obtained: written consent Time out performed: Yes Sedation: Versed (mg): 3 Sedation: Fentanyl (mcg): 150 Supplemental Oxygen via Nasal Cannula (L/min): 2 Local Anesthetic: Lidocaine 1% Amount of Anesthetic used (mls): 2 Size (Gauge): 20 Length (inches): 5 Technique Used: sterile prep, guide wire technique, direct puncture technique Post-Procedure: line sutured into place, dry sterile dressing placed Patient tolerated procedure: well Complications: none Site: Femoral R (attempted left radial artery, access x 2, unable to advance guidewire, access left brachial x 2 unable to advance guidewire. Poor pulses on right and poor visualization on US. Praful Burns places right femoral a line) - Central Line Placement Right IJ Consent obtained: written consent Time out performed: Yes Patient placed on monitor/pulse ox: Yes MD prep: mask, gown, gloves Central line prep: Chlorhexidine scrub Ultrasound used for placement: Yes Technique: Seldinger Lumen Inserted: Introducer Post procedure: sutured in place, good blood return, all ports aspirated, flushed, capped, sterile dressing applied Patient tolerated procedure: well Complications: none (introducer placed easily, swan floated without issue, no arrythmias and wedge approx. 52cm.)
[2016-12-14] MEDS ORDERED: 0.9 % Sodium Chloride 1,000 ML ONE (11:20)
[2016-12-14] MEDS ORDERED: Albumin Human 5% 50.0 GM/1,000 ML VIAL ONE (12:00)
[2016-12-14] MEDS ORDERED: *HR* FentaNYL (PF) 250 MCG/5 ML VIAL ONE (12:07)
[2016-12-14] MEDS ORDERED: Albumin Human 5% 0 GM/0 ML VIAL ONE (12:08)
--- NOTE | 2016-12-14 13:19 | Operative Note ---
Date of procedure: 12/14/16 Pre-op diagnosis: CAD Post-op diagnosis: same Procedure: 1. CABG4 (CALHOUN to LAD, sequential SVG to D1 and OM1, SVG to PDA). 2. Endoscopic vein harvesting, greater saphenous vein from right lower extremity. Implants: None. Complications: None. Anesthesia: BRISEIDA Surgeon: Manav Pearl Duck Operator: Praful Burns Specimen: None. Condition: stable Disposition: ICU Procedure in Detail: INDICATIONS FOR OPERATION: The patient is a 61-year-old otherwise healthy lady who had sudden onset of neck pain radiating to her retrosternal area yesterday. She had associated shortness of breath, dyspnea on exertion, diaphoresis, and nausea. She was evaluated at [facility] emergency department and found to have an acute NSTEMI. She was given aspirin and Brilinta in the emergency department. She was then taken for an urgent cardiac catheterization and this revealed severe 3 vessel CAD. A 99% mid RCA lesion was ballooned with reestablishment of MARY-3 flow. The patient has been recommended for urgent CABG. Given the fact the patient has received antiplatelet therapy and suffered an inferior HI, the CABG we will be delayed 5 days to allow the antiplatelet effect to dissipate and the inferior wall to recover from the infarction. FINDINGS AT OPERATION: The aorta was normal caliber without calcification. The coronary arteries were small, measuring approximately 1.25 mm to 1.75 mm in diameter. The LAD was a smallish vessel. The greater saphenous vein was harvested endoscopically from the right lower extremity from the knee to the groin. The total bypass time was 103 minutes, cross-clamp time 63 minutes, intentional hypothermia 33C. DESCRIPTION OF OPERATION: After obtaining informed consent from patient, she was taken to the operative a satisfactory general endotracheal anesthetic was induced. Difficulty was encountered inserting a radial or brachial atrial line and the right femoral artery was cannulated for the arterial monitoring. Other appropriate lines were laced. The patient's chest, abdomen, and lower extremities were prepped and draped in a sterile fashion. The greater saphenous vein was harvested endoscopically from the right lower extremity from the knee to the groin. The vein was removed, distended, and found to be of good quality. The subcutaneous tissue and skin edges were reapproximated using running Vicryl sutures. Simultaneously, a standard mediastinal incision was made and the sternum divided. The CALHOUN was taken out from its bed in side branches divided between hemoclips. The sternum was and the pericardium opened and reflected laterally. The patient was appeared for cannulation by placing pursestring sutures in the distal ascending aorta, mid-ascending aorta, and right atrial appendage. The patient was heparinized and the knees to his credit internal seconds, the distal ascending aorta was cannulated followed by placement of dual stage venous cannula into the right atrial appendage into the inferior vena cava. A stab-in antegrade metabolic and was placed in the mid-ascending aorta. The patient was placed on bypass and the temporal artery drift to 3 33 Center grade. The distal targets were identified and the aorta was crossclamped. The patient received Center cc of cold antegrade crystalloid cardioplegia through the aortic root and the patient's heart obtained rapid diastolic arrest. The PDA was opened be blade and the vein was anastomosed in end-to-side fashion using a running 7-0 Prolene suture. The anastomosis found to be hemostatic. The OM1 branch was identified in the intramyocardial position and exposed with the [place] blade. It was opened and the vein was anastomosed in an end-to-side fashion using running 7-0 Prolene suture. The anastomosis found to be hemostatic and the patient received a final dose of cold antegrade crystalloid cardioplegia through the aortic root. The D1 branch was opened with a [place] blade and the vein was opened in longitudinal fashion to the pynz-dn-imbr anastomosis could be completed using running 7-0 Prolene suture. The anastomosis found to be hemostatic. The LAD was then opened [place] blade and found to be extremely small, measuring approximately 1.25 mm in diameter. The CALHOUN was anastomosed to the LAD in an end-to-side fashion using a running 7-0 Prolene suture. The anastomosis found to be hemostatic and the mammary pedicle was tacked to the epicardium using interrupted 5-0 silk suture. Rewarming was begun during this anastomosis. The aortic cross-clamp was released and the heart distended. The veins were measured and cut to appropriate lengths. A partial occluding clamps placed across the mid-ascending aorta and the antegrade metabolic cannula was removed. An additional aortotomy site was admitted 11 blade and both sides were enlarged with a 4 mm punch. The veins were anastomosed in an end-to-side fashion to the aorta using a running 5-0 Prolene suture. The vein grafts were occluded with bulldog clamp and de-aired with a 25-gauge needle prior to removing the partial occluding clamp. The proximal distal anastomoses were found to be hemostatic; however, bleeding from the epicardium was noted on the posterior aspect of the heart near the sequential grafts. An initial attempt to obtain hemostasis with the heart beating was unsuccessful and it was determined that the patient's heart should be rearrested to enable adequate suture hemostasis. An antegrade metabolic and is placed in the mid-ascending aorta and the aorta was crossclamped. The patient received another dose of cold antegrade crystalloid cardioplegia the aortic root and the CALHOUN graft to the LAD was occluded with a bulldog clamp. The patient's heart obtained rapid diastolic arrest. A pledgeted 5-0 Prolene suture was used to obtain hemostasis in both epicardial bleeding sites on the posterior aspect of the heart. An arterial bleeder near the SVG to OM1 graft was made hemostatic using a running 7-0 Prolene suture. No further bleeding was noted. The aortic cross-clamp was released. Rewarming was restarted. Two right ventricular temporary epicardial patient is replaced, and 3 chest tubes were placed, 2 in the mediastinum one to the left pleural space. During rewarming the patient's heart regained normal sinus rhythm spontaneously. The patient's systemic temperature reached 36C, she was ventilator received volume. She was weaned from bypass required no inotropic support. Protamine was administered and the aortic and venous cannula removed. The pursestring sutures were secured and the venous cannulation site was reinforced with a running 4-0 Prolene suture. The pericardium was loosely approximated the midline using interrupted 0 silk suture and the sternum was reapproximated using sternal wires. The pectoralis major fascia, rectus abdominis fascia, subcutaneous tissue, and skin edges were reapproximated using running Vicryl sutures. Sterile dressings were applied. The patient was transferred to the ICU in satisfactory postoperative condition. There were no intraoperative complications, and the instrument, needle, and sponge count were correct at end of operation. - Open Heart Detail ANNETTE (Internal Mammary Artery) Usage: Yes Cardiopulmonary Bypass Time (mins): 103 Aortic Cross Clamp Time (mins): 63 Intentional Hypothermia Temperature (C.): 33
[2016-12-14] MEDS ORDERED: Naloxone 0.4 MG/ML INJ IVP PRN (13:20)
[2016-12-14] MEDS ORDERED: Potassium Chloride 40 MEQ/200 ML BAG IVPB PRN (13:20)
[2016-12-14] MEDS ORDERED: *HR* Dextrose 50 % in Water (Syg) 50 ML SYRINGE IVP PRN (13:20)
[2016-12-14] MEDS ORDERED: Calcium Chloride 1,000 MG in 0.9 % Sodium Chloride 100 ML IVPB PRN (13:20)
[2016-12-14] MEDS ORDERED: Acetaminophen 650 MG RECTAL SUPP RC PRN (13:20)
[2016-12-14] MEDS ORDERED: Insulin Regular, Human 100 UNIT/ML IV PRN (13:20)
[2016-12-14] MEDS ORDERED: Nitroglycerin 25 MG/250 ML INFUS..BTL IVC SCH (13:30)
[2016-12-14] MEDS ORDERED: Insulin Human Regular 100 UNIT in 0.9 % Sodium Chloride 100 ML IVC SCH (13:30)
[2016-12-14] MEDS ORDERED: Norepinephrine 4 MG in D5% in Water 250 ML IVC SCH (13:30)
[2016-12-14] MEDS ORDERED: Ondansetron 4 MG/2 ML VIAL IVP PRN (13:32)
[2016-12-14 13:40] LABS: ABG Base Excess -0.8 mEq/L (-2.0 to 3.0); ABG HCO3 24.3 mEQ/L (21-27); ABG Oxygen Saturation 99 % (95-98); ABG PCO2 41 mmHg (35-45); ABG PO2 161 mmHg (85-104); ABG TCO2 25.6 mEq/L (20-26)
[2016-12-14 13:42] LABS: Blood Gas FiO2 50 %; INR 1.8; Prothrombin Time 19.6 Seconds (9.4-12.1)
[2016-12-14 13:44] LABS: ABG PH 7.38 pH Units (7.32-7.45)
[2016-12-14 13:45] LABS: Activated Partial Thrombo Time 44.7 Seconds (26.0-36.0)
[2016-12-14 13:49] LABS: BUN/Creatinine Ratio 13 (6-26); Blood Urea Nitrogen 11 mg/dL (7-20); Calcium 8.6 mg/dL (8.6-10.8); Carbon Dioxide 25 mEq/L (19-29); Chloride 110 mEq/L (98-109); Glucose 100 mg/dL (70-99); Magnesium 2.5 mg/dL (1.6-2.6); Osmolality,Calculated 293 (280-300); Potassium 3.6 mEq/L (3.5-4.5); eGFR For African Americans > 60 (> 60); eGFR For Non-African Americans > 60 (> 60)
[2016-12-14 13:51] LABS: Sodium 142 mEq/L (136-145)
[2016-12-14 13:53] LABS: Basophils % 0.3 %; Immature Granulocytes % 0.5 % (0-4); Mean Corpuscular Hemoglobin 30.2 pg (28.0-33.3)
[2016-12-14 13:54] LABS: Eosinophils # 0.2 K/mcL (0.0-0.6); Eosinophils % 2.6 %; Hemoglobin 9.4 g/dL (11.5-15.4); Lymphocytes # 1.3 K/mcL (0.6-4.6); Lymphocytes % 16.2 %; Mean Corpuscular HGB Conc 33.6 g/dL (31.6-35.5); Mean Platelet Volume 10.1 fL (9.4-12.4); Monocytes # 0.4 K/mcL (0.0-1.3); Monocytes % 5.3 %; Neutrophils # 5.8 K/mcL (1.6-8.9); Red Blood Count 3.11 M/mcL (3.82-4.97); Red Cell Distribution Width 12.9 % (11.5-14.5); Segmented Neutrophils % 75.1 %
[2016-12-14 13:56] LABS: Platelet Count 82 K/mcL (140-400)
[2016-12-14] MEDS: Pantoprazole 40 MG VIAL IVP SCH (13:56)
[2016-12-14] MEDS: 0.9 % Sodium Chloride w KCl 20 MEQ/1,000 ML MLS IVC SCH (13:56)
[2016-12-14 14:27] LABS: Platelet Estimate Slight Decrease (Normal)
[2016-12-14] MEDS ORDERED: Mannitol 25% vial 12.5 GM/50 ML VIAL IVP ONE (14:34)
[2016-12-14] MEDS ORDERED: Lidocaine 2% Syringe 100 MG/5 ML IV ONE (14:34)
[2016-12-14] MEDS ORDERED: Tranexamic Acid 1,000 MG/10 ML VIAL IV ONE (14:34)
[2016-12-14] MEDS ORDERED: Albumin Human 25% 25 GM/100 ML IV.SOLN IV ONE (14:34)
[2016-12-14] MEDS ORDERED: *HR* Phenylephrine 10 MG/ML VIAL IVC ONE (14:34)
[2016-12-14] MEDS ORDERED: *HR* Magnesium Sulfate 2 GM/50 ML PIGGYBACK IVPB ONE (14:34)
[2016-12-14] MEDS ORDERED: *HR* Heparin 10,000 UNIT/10 ML VIAL IV ONE (14:34)
[2016-12-14 14:35] LABS: Hemoglobin A1C 5.9 %
[2016-12-14 15:30] LABS: ABG Base Excess 4.1 mEq/L (-2.0 to 3.0); ABG HCO3 30.9 mEQ/L (21-27); ABG PCO2 56 mmHg (35-45); ABG PH 7.35 pH Units (7.32-7.45); ABG PO2 411 mmHg (85-104); ABG TCO2 32.6 mEq/L (20-26)
[2016-12-14 15:31] LABS: ABG Glucose 99 mg/dL (60-95); ABG Ionized Calcium 1.23 mmol/L (1.15-1.35); ABG Oxygen Saturation 100 % (95-98)
[2016-12-14] MEDS: Magnesium Sulfate 2 GM in D5% in Water 100 ML IVPB PRN (15:31)
[2016-12-14 15:33] LABS: ABG Glucose 140 mg/dL (60-95); ABG HCO3 28.5 mEQ/L (21-27); ABG Ionized Calcium 1.11 mmol/L (1.15-1.35); ABG Oxygen Saturation 99 % (95-98); ABG PCO2 47 mmHg (35-45); ABG PH 7.39 pH Units (7.32-7.45); ABG PO2 144 mmHg (85-104); ABG TCO2 29.9 mEq/L (20-26)
[2016-12-14 15:35] LABS: ABG PCO2 37 mmHg (35-45); ABG PH 7.43 pH Units (7.32-7.45); ABG PO2 328 mmHg (85-104)
[2016-12-14 15:36] LABS: ABG Base Excess 0.3 mEq/L (-2.0 to 3.0); ABG Glucose 207 mg/dL (60-95); ABG HCO3 24.6 mEQ/L (21-27); ABG Ionized Calcium 0.88 mmol/L (1.15-1.35); ABG Oxygen Saturation 100 % (95-98); ABG TCO2 25.7 mEq/L (20-26)
[2016-12-14 15:38] LABS: ABG Base Excess 0.9 mEq/L (-2.0 to 3.0); ABG HCO3 25.1 mEQ/L (21-27); ABG Oxygen Saturation 100 % (95-98); ABG PCO2 37 mmHg (35-45); ABG PH 7.44 pH Units (7.32-7.45); ABG PO2 309 mmHg (85-104); ABG TCO2 26.2 mEq/L (20-26)
[2016-12-14 15:39] LABS: ABG Glucose 201 mg/dL (60-95); ABG Ionized Calcium 0.95 mmol/L (1.15-1.35)
[2016-12-14 15:40] LABS: ABG HCO3 23.4 mEQ/L (21-27); ABG PCO2 36 mmHg (35-45); ABG PH 7.42 pH Units (7.32-7.45); ABG PO2 289 mmHg (85-104)
[2016-12-14 15:41] LABS: ABG Glucose 186 mg/dL (60-95); ABG Ionized Calcium 0.99 mmol/L (1.15-1.35); ABG Oxygen Saturation 100 % (95-98); ABG TCO2 24.5 mEq/L (20-26)
[2016-12-14 15:43] LABS: ABG Glucose 177 mg/dL (60-95); ABG HCO3 23.5 mEQ/L (21-27); ABG Oxygen Saturation 100 % (95-98); ABG PCO2 37 mmHg (35-45); ABG PH 7.41 pH Units (7.32-7.45); ABG PO2 291 mmHg (85-104); ABG TCO2 24.6 mEq/L (20-26)
[2016-12-14 15:45] LABS: ABG Base Excess -1.7 mEq/L (-2.0 to 3.0); ABG HCO3 22.9 mEQ/L (21-27); ABG PCO2 37 mmHg (35-45); ABG PO2 285 mmHg (85-104)
[2016-12-14 15:46] LABS: ABG Glucose 246 mg/dL (60-95); ABG Ionized Calcium 0.92 mmol/L (1.15-1.35); ABG Oxygen Saturation 24 % (95-98)
[2016-12-14 17:25] LABS: Hematocrit 26.5 % (35.3-44.9)
[2016-12-14 17:26] LABS: ABG Base Excess -2.1 mEq/L (-2.0 to 3.0); ABG HCO3 23.2 mEQ/L (21-27); ABG Oxygen Saturation 99 % (95-98); ABG PCO2 41 mmHg (35-45); ABG PO2 130 mmHg (85-104); ABG TCO2 24.5 mEq/L (20-26)
[2016-12-14 17:27] LABS: Blood Gas FiO2 40 %; Blood Gas PEEP 5 cm H2O; Blood Gas Respiration Rate 12; Blood Gas VT 600 cc
[2016-12-14 17:28] LABS: ABG PH 7.36 pH Units (7.32-7.45); Hemoglobin 8.9 g/dL (11.5-15.4)
[2016-12-14] MEDS: ceFAZolin 2,000 MG in D5% in Water 100 ML IVPB SCH ×2 (17:49→23:34)
[2016-12-14] MEDS: Metoclopramide 10 MG/2 ML VIAL IVP SCH ×2 (17:50→23:34)
[2016-12-14] MEDS: Norepinephrine 8 MG in D5% in Water 250 ML IVC SCH (20:55)
[2016-12-14 21:43] LABS: ABG Base Excess -1.2 mEq/L (-2.0 to 3.0); ABG HCO3 23.6 mEQ/L (21-27); ABG Oxygen Saturation 99 % (95-98); ABG PCO2 39 mmHg (35-45); ABG PH 7.39 pH Units (7.32-7.45); ABG PO2 130 mmHg (85-104); ABG TCO2 24.8 mEq/L (20-26)
[2016-12-14 21:47] LABS: Blood Gas FiO2 35 %
[2016-12-14] MEDS: *HR* Morphine 2 MG/ML SYRINGE IVP PRN (22:27)
[2016-12-14 23:30] LABS: ABG Base Excess -1.1 mEq/L (-2.0 to 3.0); ABG HCO3 24.3 mEQ/L (21-27); ABG Oxygen Saturation 98 % (95-98); ABG PCO2 43 mmHg (35-45); ABG PH 7.36 pH Units (7.32-7.45); ABG PO2 104 mmHg (85-104); ABG TCO2 25.6 mEq/L (20-26); Blood Gas FiO2 35 %
[2016-12-15] MEDS: *HR* Morphine 2 MG/ML SYRINGE IVP PRN ×7 (00:32→20:01)
[2016-12-15 00:58] LABS: ABG HCO3 25.9 mEQ/L (21-27); ABG Oxygen Saturation 95 % (95-98); ABG PCO2 48 mmHg (35-45); ABG PH 7.34 pH Units (7.32-7.45); ABG PO2 80 mmHg (85-104); ABG TCO2 27.4 mEq/L (20-26)
[2016-12-15 00:59] LABS: Blood Gas FiO2 32 %; Blood Gas Liter Flow 3 L/MIN
[2016-12-15 04:17] LABS: Basophils % 0.2 %; Eosinophils % 0.1 %; Hematocrit 26.6 % (35.3-44.9); Hemoglobin 9.1 g/dL (11.5-15.4); Immature Granulocytes % 0.8 % (0-4); Lymphocytes # 0.7 K/mcL (0.6-4.6); Lymphocytes % 6.6 %; Mean Corpuscular HGB Conc 34.2 g/dL (31.6-35.5); Mean Corpuscular Volume 90.5 fL (83.0-100.0); Mean Platelet Volume 10.4 fL (9.4-12.4); Monocytes % 9.7 %; Neutrophils # 8.6 K/mcL (1.6-8.9); Platelet Count 105 K/mcL (140-400); Red Blood Count 2.94 M/mcL (3.82-4.97); Red Cell Distribution Width 12.9 % (11.5-14.5); Segmented Neutrophils % 82.6 %
[2016-12-15 04:22] LABS: INR 1.3; Prothrombin Time 14.4 Seconds (9.4-12.1)
[2016-12-15 04:25] LABS: Activated Partial Thrombo Time 30.7 Seconds (26.0-36.0)
[2016-12-15 04:27] LABS: BUN/Creatinine Ratio 17 (6-26); Blood Urea Nitrogen 15 mg/dL (7-20); Calcium 8.7 mg/dL (8.6-10.8); Carbon Dioxide 24 mEq/L (19-29); Chloride 108 mEq/L (98-109); Glucose 121 mg/dL (70-99); Magnesium 1.9 mg/dL (1.6-2.6); Osmolality,Calculated 290 (280-300); Potassium 4.4 mEq/L (3.5-4.5); Sodium 139 mEq/L (136-145); eGFR For African Americans > 60 (> 60); eGFR For Non-African Americans > 60 (> 60)
[2016-12-15] MEDS: Metoclopramide 10 MG/2 ML VIAL IVP SCH ×4 (06:06→23:06)
[2016-12-15] MEDS: *HR* OxyCODONE/APAP 5/325 TABLET PO PRN ×3 (06:06→21:43)
[2016-12-15] MEDS: *HR* Heparin 5,000 UNIT/ML VIAL SQ SCH ×2 (06:30→18:00)
--- NOTE | 2016-12-15 06:44 | Cardiothoracic Progress Note ---
Date of Encounter: 12/15/16 Time of Encounter: 06:42 - Assessment and plan (1) NSTEMI (non-ST elevated myocardial infarction) Current Visit: Yes Status: Acute The patient is recovering well from her CABG4. She remained hemodynamically stable overnight and is currently extubated. She is breathing comfortably. Her vasopressor support has been weaned off. She is tachycardic this morning and will receive her beta tigre. The patient will be monitored in the ICU today. The assessment and plan as outlined above was discussed with the patient and/or family members who expressed understanding and agreement. All questions were answered. - Subjective Procedure(s) Performed: POD#1 S/P CABG4 Interval history: The patient remained hemodynamic stable overnight. She is extubated and breathing comfortably. She has no complaints. Vital Signs, Last 4 Hours Pulse Resp BP Pulse Ox 12/15/16 06:00 121 18 110/61 96 12/15/16 05:00 121 16 121/66 98 12/15/16 04:09 20 120/65 98 12/15/16 04:00 122 12/15/16 03:59 122 14 115/61 96 12/15/16 03:00 122 16 121/62 95 Oxgyen Flow Rate Oxygen Flow Rate (LPM) 3 Clinical Data, last 8 Hours Output, Chest Tube Drainage 10 Amount [Mediastinal #1] Output, Chest Tube Drainage 5 Amount [Mediastinal #1] Output, Chest Tube Drainage 15 Amount [Mediastinal #1] Output, Chest Tube Drainage 20 Amount [Mediastinal #1] Output, Chest Tube Drainage 35 Amount [Mediastinal #1] Output, Chest Tube Drainage 15 Amount [Mediastinal #1] Output, Chest Tube Drainage 15 Amount [Mediastinal #1] Output, Chest Tube Drainage 30 Amount [Mediastinal #1] Output, Chest Tube Drainage 5 Amount [Mediastinal #2] Output, Chest Tube Drainage 5 Amount [Mediastinal #2] Output, Chest Tube Drainage 0 Amount [Mediastinal #2] Output, Chest Tube Drainage 5 Amount [Mediastinal #2] Output, Chest Tube Drainage 10 Amount [Mediastinal #2] Output, Chest Tube Drainage 0 Amount [Mediastinal #2] Output, Chest Tube Drainage 10 Amount [Mediastinal #2] Output, Chest Tube Drainage 0 Amount [Mediastinal #2] Weight 12/13/16 12/14/16 12/15/16 23:59 23:59 23:59 Weight 48.2 kg - Physical Examination General: Conversant, No Apparent Distress Neck: No JVD, Normal carotid pulses Cardiac: Reg Rate and Rhythm, Normal S1 and S2, No Murmur Incision: No signs of infection, Dry/intact dressing Sternum: Stable Chest tubes: Minimal drainage, Other (No air leak.) Pacing Wires: In place Lungs: Normal Breath Sounds, No Wheeze, Rales, Rhonchi Neuro: Alert and responsive, No focal deficits noted Vascular: Normal capillary refill Extremities: No Clubbing, No Cyanosis, No Edema - Labs 12/15/16 04:04 12/15/16 04:04 Lab Results, Last 24 hours 12/14/16 12/14/16 12/14/16 13:23 13:23 13:23 WBC 7.7 Hgb 9.4 L D Hct 28.0 L Plt Count 82 L D INR 1.8 D APTT 44.7 H Sodium 142 Potassium 3.6 Chloride 110 H Carbon Dioxide 25 BUN 11 Creatinine 0.85 Glucose 100 H Calcium 8.6 Magnesium 2.5 12/14/16 12/14/16 12/15/16 17:15 17:15 04:04 WBC 10.3 Hgb 8.9 L 9.1 L Hct 26.5 L 26.6 L Plt Count 105 L INR APTT Sodium Potassium 3.7 Chloride Carbon Dioxide BUN Creatinine Glucose Calcium Magnesium 12/15/16 12/15/16 04:04 04:04 WBC Hgb Hct Plt Count INR 1.3 APTT 30.7 Sodium 139 Potassium 4.4 Chloride 108 Carbon Dioxide 24 BUN 15 Creatinine 0.89 Glucose 121 H Calcium 8.7 Magnesium 1.9 - Imaging Chest Xray: image reviewed (No pneumothorax. Small left pleural effusion.) - VTE Documentation of Mechanical Device: Graduated compression elastic hosiery Consult Discharge Plan - Plan Referrals: Broderick Durán DO [Primary Care Provider] -
[2016-12-15] MEDS: Chlorhexidine Rinse 15 ML MOUTHWASH MM SCH ×2 (08:30→20:30)
[2016-12-15] MEDS: Aspirin Enteric Coated 81 MG Tablet PO SCH (08:31)
[2016-12-15] MEDS: Pantoprazole 40 MG VIAL IVP SCH (08:31)
[2016-12-15] MEDS: Furosemide 20 MG/2 ML VIAL IVP SCH ×2 (08:31→18:01)
[2016-12-15] MEDS ORDERED: Heparin 1,000 UNITS/500 mL NS 500 ML ONE (08:34)
[2016-12-15] MEDS: Magnesium Sulfate 2 GM in D5% in Water 100 ML IVPB PRN (08:42)
[2016-12-15] MEDS: 0.9 % Sodium Chloride w KCl 20 MEQ/1,000 ML MLS IVC SCH (12:07)
[2016-12-15] MEDS ORDERED: D5% in Water 1,000 ML IVC PRN (14:39)
[2016-12-15] MEDS ORDERED: *HR* Dextrose 50 % in Water (Syg) 50 ML SYRINGE IVP PRN (14:39)
[2016-12-15] MEDS ORDERED: Dextrose Gel 15 GM PO PRN ×2 (14:39)
--- NOTE | 2016-12-15 16:00 | Electrocardiograph Report ---
[address] [place], [place] [address] Test Date: 2016-12-14 Pat Name: Watson Vogel Department: 109 Room: [facility] Gender: F Facility Practice Specialist: [place] : 1955 Requested By: Manav Pearl Order Number: [id number] Reading MD: Praful Ortega Measurements Intervals [place] Rate: 110 P: 31 UT: 141 QRS: -10 QRSD: 102 T: 79 QT: 376 QTc: 441 Interpretive Statements SINUS TACHYCARDIA LOW QRS VOLTAGE IN PRECORDIAL LEADS MARKED ST ELEVATION, CONSIDER INFERIOR INJURY Electronically Signed On 12-15-2016 15:58:24 EDT by Praful Ortega
[2016-12-15] MEDS: Insulin LISPRO 300 UNITS/3 ML VIAL SQ SCH ×2 (16:36→23:14)
[2016-12-16] MEDS: *HR* OxyCODONE/APAP 5/325 TABLET PO PRN ×5 (01:56→20:38)
[2016-12-16] MEDS: Norepinephrine 8 MG in D5% in Water 250 ML IVC SCH (01:59)
[2016-12-16 05:13] LABS: BUN/Creatinine Ratio 25 (6-26); Blood Urea Nitrogen 21 mg/dL (7-20); Calcium 8.9 mg/dL (8.6-10.8); Carbon Dioxide 28 mEq/L (19-29); Chloride 102 mEq/L (98-109); Glucose 156 mg/dL (70-99); Osmolality,Calculated 284 (280-300); Potassium 5.1 mEq/L (3.5-4.5); Sodium 134 mEq/L (136-145); eGFR For African Americans > 60 (> 60); eGFR For Non-African Americans > 60 (> 60)
[2016-12-16 05:15] LABS: Basophils % 0.2 %; Eosinophils # 0.1 K/mcL (0.0-0.6); Eosinophils % 0.4 %; Hemoglobin 8.1 g/dL (11.5-15.4); Immature Granulocytes % 0.9 % (0-4); Lymphocytes # 1.8 K/mcL (0.6-4.6); Lymphocytes % 14.8 %; Mean Corpuscular HGB Conc 32.4 g/dL (31.6-35.5); Mean Corpuscular Volume 92.6 fL (83.0-100.0); Mean Platelet Volume 11.1 fL (9.4-12.4); Monocytes # 1.4 K/mcL (0.0-1.3); Monocytes % 11.3 %; Neutrophils # 8.7 K/mcL (1.6-8.9); Platelet Count 125 K/mcL (140-400); Red Cell Distribution Width 12.9 % (11.5-14.5); Segmented Neutrophils % 72.4 %
[2016-12-16 06:28] LABS: Hypersegmented Neutrophils Present (Not Present); Platelet Estimate Slight Decrease (Normal)
[2016-12-16] MEDS: Metoclopramide 10 MG/2 ML VIAL IVP SCH ×3 (06:34→17:29)
[2016-12-16] MEDS: *HR* Heparin 5,000 UNIT/ML VIAL SQ SCH ×2 (06:35→17:29)
--- NOTE | 2016-12-16 07:31 | Cardiothoracic Progress Note ---
Date of Encounter: 12/16/16 Time of Encounter: 07:31 - Assessment and plan (1) NSTEMI (non-ST elevated myocardial infarction) Current Visit: Yes Status: Acute Chest tubes were removed. We will check a stat portable chest x-ray. We will discontinue her Qureshi. We will leave her in the ICU today to slowly wean her norepinephrine drip. - Subjective Interval history: The patient complains of mild postoperative pain. Vital Signs, Last 4 Hours Pulse Resp BP Pulse Ox 12/16/16 06:00 96 14 92/60 96 12/16/16 05:00 95 16 90/59 96 12/16/16 04:00 95 17 91/49 95 12/16/16 03:42 17 96 Oxgyen Flow Rate Oxygen Flow Rate (LPM) 3 Clinical Data, last 8 Hours Output, Chest Tube Drainage 20 Amount [Mediastinal #1] Output, Chest Tube Drainage 0 Amount [Mediastinal #1] Output, Chest Tube Drainage 30 Amount [Mediastinal #2] Output, Chest Tube Drainage 0 Amount [Mediastinal #2] Lungs are clear to percussion and auscultation. Heart is in a normal sinus rhythm. All incisions are healing well without signs of infection and the sternum is stable. Chest tubes had minimal drainage and no air leak. - Labs 12/16/16 04:55 12/16/16 04:55 Lab Results, Last 24 hours 12/16/16 12/16/16 04:55 04:55 WBC 12.0 H Hgb 8.1 L Hct 25.0 L Plt Count 125 L Sodium 134 L Potassium 5.1 H Chloride 102 Carbon Dioxide 28 BUN 21 H Creatinine 0.84 Glucose 156 H Calcium 8.9 - VTE Documentation of Mechanical Device: Graduated compression elastic hosiery Consult Discharge Plan - Plan Referrals: Broderick Durán DO [Primary Care Provider] -
[2016-12-16] MEDS: Pantoprazole 40 MG VIAL IVP SCH (09:20)
[2016-12-16] MEDS: Chlorhexidine Rinse 15 ML MOUTHWASH MM SCH ×2 (09:20→20:39)
[2016-12-16] MEDS: Aspirin Enteric Coated 81 MG Tablet PO SCH (09:20)
[2016-12-16] MEDS: Insulin LISPRO 300 UNITS/3 ML VIAL SQ SCH ×4 (09:21→20:41)
[2016-12-16] MEDS: *HR* Morphine 2 MG/ML SYRINGE IVP PRN (14:09)
--- NOTE | 2016-12-16 14:50 | Anesthesia Evaluation Post Op ---
Date of Encounter: 12/16/16 Time of Encounter: 13:30 - Vital Signs Vital Signs: Selected Entries 12/16/16 13:00 Pulse Rate 116 Respiratory Rate 14 Blood Pressure 94/54 O2 Sat by Pulse Oximetry 96 Oxygen Flow Rate (LPM) 3 - Lungs Lungs: Clear Ascult./Percussion - Airway Airway: Non-obstructed - Cardiovascular Regular Rate (still tachycardic despite beta blockers) - Pain Pain Scale: 3 Pain Scale used: Numeric (1 - 10) - Nausea Vomiting Nausea Vomiting: Not Present - Hydration Hydration: Tolerates oral liquids, Qureshi catheter (will remain in ICU until CT surgery feels should be transferred out.)
[2016-12-17] MEDS ORDERED: Amiodarone Premix 150 MG/100 ML BAG IVPB ONE ×2 (03:44→03:52)
[2016-12-17] MEDS ORDERED: Amiodarone Premix 360 MG/200 ML BAG IVC ONE ×2 (03:52→04:00)
[2016-12-17 04:03] LABS: Basophils % 0.3 %; Eosinophils # 0.2 K/mcL (0.0-0.6); Hematocrit 21.8 % (35.3-44.9); Hemoglobin 7.2 g/dL (11.5-15.4); Immature Granulocytes % 0.3 % (0-4); Lymphocytes # 1.7 K/mcL (0.6-4.6); Lymphocytes % 22.1 %; Mean Corpuscular Hemoglobin 30.1 pg (28.0-33.3); Mean Corpuscular Volume 91.2 fL (83.0-100.0); Mean Platelet Volume 10.8 fL (9.4-12.4); Monocytes # 0.7 K/mcL (0.0-1.3); Monocytes % 9.7 %; Neutrophils # 4.9 K/mcL (1.6-8.9); Platelet Count 122 K/mcL (140-400); Red Blood Count 2.39 M/mcL (3.82-4.97); Red Cell Distribution Width 13.1 % (11.5-14.5); Segmented Neutrophils % 65.6 %
[2016-12-17] MEDS: Metoclopramide 10 MG/2 ML VIAL IVP SCH ×2 (04:11→06:30)
[2016-12-17] MEDS: *HR* Morphine 2 MG/ML SYRINGE IVP PRN ×2 (04:12→20:55)
[2016-12-17 04:18] LABS: BUN/Creatinine Ratio 33 (6-26); Blood Urea Nitrogen 22 mg/dL (7-20); Calcium 8.8 mg/dL (8.6-10.8); Carbon Dioxide 29 mEq/L (19-29); Chloride 98 mEq/L (98-109); Glucose 130 mg/dL (70-99); Osmolality,Calculated 281 (280-300); Sodium 133 mEq/L (136-145); eGFR For African Americans > 60 (> 60); eGFR For Non-African Americans > 60 (> 60)
[2016-12-17 04:28] LABS: Potassium 3.9 mEq/L (3.5-4.5)
[2016-12-17] MEDS: *HR* Heparin 5,000 UNIT/ML VIAL SQ SCH ×2 (06:30→16:53)
--- NOTE | 2016-12-17 07:29 | Cardiothoracic Progress Note ---
Date of Encounter: 12/17/16 Time of Encounter: 07:28 - Assessment and plan (1) NSTEMI (non-ST elevated myocardial infarction) Current Visit: Yes Status: Acute The patient has the usual, expected acute postoperative blood loss anemia. We will give HER-2 units of packed red blood cells. We will transfer her to the floor. We will continue the amiodarone drip until tomorrow morning. - Subjective Interval history: The patient has no complaints. She did go into atrial fibrillation last night. Vital Signs, Last 4 Hours Temp Pulse Resp BP Pulse Ox 12/17/16 06:00 98 12 91/58 94 12/17/16 05:13 97.5 F L 12/17/16 05:00 102 18 94/63 94 12/17/16 04:00 158 18 92/64 90 Oxgyen Flow Rate Oxygen Flow Rate (LPM) 3 Clinical Data, last 8 Hours Output, Urine Amount 225 Output, Urine Amount 225 Lungs are clear to percussion and auscultation. Heart is in a normal sinus rhythm on an amiodarone drip. All incisions are healing well without signs of infection. Chest x-ray after chest tube removal reveals no pneumothorax. - Labs 12/17/16 Unknown 12/17/16 Unknown Lab Results, Last 24 hours 12/17/16 12/17/16 Unknown Unknown WBC 7.5 Hgb 7.2 L Hct 21.8 L Plt Count 122 L Sodium 133 L Potassium 3.9 D Chloride 98 Carbon Dioxide 29 BUN 22 H Creatinine 0.66 Glucose 130 H Calcium 8.8 - VTE Documentation of Mechanical Device: Graduated compression elastic hosiery Consult Discharge Plan - Plan Referrals: Broderick Durán DO [Primary Care Provider] -
[2016-12-17] MEDS: Insulin LISPRO 300 UNITS/3 ML VIAL SQ SCH ×4 (07:30→21:03)
[2016-12-17] MEDS: Chlorhexidine Rinse 15 ML MOUTHWASH MM SCH ×2 (07:45→20:40)
[2016-12-17] MEDS: Aspirin Enteric Coated 81 MG Tablet PO SCH (07:45)
[2016-12-17] MEDS: Pantoprazole 40 MG VIAL IVP SCH (07:45)
[2016-12-17] MEDS: *HR* OxyCODONE/APAP 5/325 TABLET PO PRN ×3 (07:45→17:13)
[2016-12-17] MEDS ORDERED: 0.9 % Sodium Chloride 250 ML ONE (08:49)
[2016-12-17] MEDS ORDERED: Amiodarone Premix 360 MG/200 ML BAG IVC SCH ×2 (10:00→11:34)
[2016-12-17] MEDS ORDERED: Nicotine 21 MG PATCH.TD24 TD PRN (11:34)
[2016-12-17] MEDS ORDERED: Dextrose Gel 15 GM PO PRN ×2 (11:34)
[2016-12-17] MEDS ORDERED: Naloxone 0.4 MG/ML INJ IVP PRN (11:34)
[2016-12-17] MEDS ORDERED: Nitroglycerin 0.4 MG TAB.SUBL SL PRN (11:34)
[2016-12-17] MEDS ORDERED: *HR* Dextrose 50 % in Water (Syg) 50 ML SYRINGE IVP PRN (11:34)
[2016-12-17] MEDS ORDERED: D5% in Water 1,000 ML IVC PRN (11:34)
--- NOTE | 2016-12-17 15:41 | Electrocardiograph Report ---
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
[2016-12-17] MEDS: Ondansetron 4 MG/2 ML VIAL IVP PRN (20:42)
[2016-12-18] MEDS: *HR* OxyCODONE/APAP 5/325 TABLET PO PRN ×4 (01:29→22:04)
[2016-12-18 02:00] LABS: Basophils % 0.4 %; Eosinophils # 0.2 K/mcL (0.0-0.6); Eosinophils % 2.1 %; Hematocrit 28.3 % (35.3-44.9); Immature Granulocytes % 0.5 % (0-4); Immature Platelets 8.2 % (1.1-6.1); Lymphocytes % 24.9 %; Mean Corpuscular HGB Conc 33.6 g/dL (31.6-35.5); Mean Corpuscular Hemoglobin 29.6 pg (28.0-33.3); Mean Corpuscular Volume 88.2 fL (83.0-100.0); Mean Platelet Volume 10.8 fL (9.4-12.4); Monocytes # 0.8 K/mcL (0.0-1.3); Monocytes % 9.6 %; Neutrophils # 4.9 K/mcL (1.6-8.9); Nucleated Red Blood Cells 0.4 /100 WBC (0); Platelet Count 174 K/mcL (140-400); Red Blood Count 3.21 M/mcL (3.82-4.97); Red Cell Distribution Width 14.6 % (11.5-14.5); Segmented Neutrophils % 62.5 %
[2016-12-18 02:07] LABS: Hemoglobin 9.5 g/dL (11.5-15.4)
[2016-12-18 02:11] LABS: BUN/Creatinine Ratio 26 (6-26); Blood Urea Nitrogen 18 mg/dL (7-20); Calcium 8.6 mg/dL (8.6-10.8); Carbon Dioxide 29 mEq/L (19-29); Chloride 100 mEq/L (98-109); Glucose 136 mg/dL (70-99); Osmolality,Calculated 286 (280-300); Potassium 3.7 mEq/L (3.5-4.5); Sodium 136 mEq/L (136-145); eGFR For African Americans > 60 (> 60); eGFR For Non-African Americans > 60 (> 60)
[2016-12-18] MEDS: *HR* Heparin 5,000 UNIT/ML VIAL SQ SCH ×2 (06:30→16:52)
[2016-12-18] MEDS: Insulin LISPRO 300 UNITS/3 ML VIAL SQ SCH ×4 (07:37→22:06)
[2016-12-18] MEDS: Aspirin Enteric Coated 81 MG Tablet PO SCH (07:42)
[2016-12-18] MEDS: Pantoprazole 40 MG VIAL IVP SCH (07:42)
[2016-12-18] MEDS: Chlorhexidine Rinse 15 ML MOUTHWASH MM SCH ×2 (07:43→22:00)
[2016-12-18] MEDS: *HR* Amiodarone 200 MG TABLET PO SCH (09:00)
[2016-12-18] MEDS: *HR* Morphine 2 MG/ML SYRINGE IVP PRN ×2 (10:50→19:46)
[2016-12-18] MEDS: Ondansetron 4 MG/2 ML VIAL IVP PRN (10:50)
[2016-12-18] MEDS ORDERED: *HR* Promethazine 25 MG/ML VIAL IVP PRN (13:17)
--- NOTE | 2016-12-18 13:46 | Cardiothoracic Progress Note ---
Date of Encounter: 12/18/16 Time of Encounter: 13:44 - Assessment and plan (1) NSTEMI (non-ST elevated myocardial infarction) Current Visit: Yes Status: Acute The patient is recovering well from her CABG4. She remained hemodynamically stable overnight and is breathing comfortably. The patient will begin ambulating in hallways today. The assessment and plan as outlined above was discussed with the patient and/or family members who expressed understanding and agreement. All questions were answered. - Subjective Procedure(s) Performed: POD#4 S/P CABG4 Interval history: The patient remained hemodynamic stable overnight. She is breathing comfortably. She has no complaints. Vital Signs, Last 4 Hours Temp Pulse Resp BP Pulse Ox 12/18/16 11:48 16 91 12/18/16 11:15 98/63 12/18/16 11:02 78 12/18/16 10:49 97.8 F 80 18 101/66 95 Oxgyen Flow Rate Oxygen Flow Rate (LPM) 3 Clinical Data, last 8 Hours Output, Urine Amount 200 Output, Urine Amount 200 Weight 12/16/16 12/17/16 12/18/16 23:59 23:59 23:59 Weight 73.936 kg 73.8 kg - Physical Examination General: Conversant, No Apparent Distress Neck: No JVD, Normal carotid pulses Cardiac: Reg Rate and Rhythm, Normal S1 and S2, No Murmur Incision: No signs of infection, Dry/intact dressing Sternum: Stable Pacing Wires: In place Lungs: Normal Breath Sounds, No Wheeze, Rales, Rhonchi Neuro: Alert and responsive, No focal deficits noted Vascular: Normal capillary refill Musculoskeletal: No Chest Wall Tenderness Extremities: No Clubbing, No Cyanosis, No Edema - Labs 12/18/16 01:50 12/18/16 01:50 Lab Results, Last 24 hours 12/18/16 12/18/16 01:50 01:50 WBC 7.9 Hgb 9.5 L D Hct 28.3 L Plt Count 174 Sodium 136 Potassium 3.7 Chloride 100 Carbon Dioxide 29 BUN 18 Creatinine 0.68 Glucose 136 H Calcium 8.6 - VTE Documentation of Mechanical Device: Graduated compression elastic hosiery Consult Discharge Plan - Plan Referrals: Broderick Zhao DO [Primary Care Provider] - (DR. ZHAO'S OFFICE WILL NOT MAKE APPOINTMENTS FOR US HE WANTS THE PATIENT TO CALL AND MAKE THEIR OWN) Manav Pearl MD [Partnered Physician] - 01/21/17 2:15 pm Kourtney Austin CNP [Partnered Physician] - 01/05/17 8:30 am
[2016-12-19] MEDS: *HR* Heparin 5,000 UNIT/ML VIAL SQ SCH ×2 (04:16→16:36)
[2016-12-19] MEDS: *HR* OxyCODONE/APAP 5/325 TABLET PO PRN ×5 (04:17→20:24)
[2016-12-19] MEDS: Chlorhexidine Rinse 15 ML MOUTHWASH MM SCH ×2 (08:23→20:24)
[2016-12-19] MEDS: Pantoprazole 40 MG VIAL IVP SCH (08:24)
[2016-12-19] MEDS: *HR* Amiodarone 200 MG TABLET PO SCH (08:24)
[2016-12-19] MEDS: Aspirin Enteric Coated 81 MG Tablet PO SCH (08:24)
[2016-12-19] MEDS: Insulin LISPRO 300 UNITS/3 ML VIAL SQ SCH ×4 (08:25→20:30)
--- NOTE | 2016-12-19 08:58 | Cardiothoracic Progress Note ---
Date of Encounter: 12/19/16 Time of Encounter: 08:57 - Assessment and plan (1) NSTEMI (non-ST elevated myocardial infarction) Current Visit: Yes Status: Acute The patient is recovering well from her CABG4. She remained hemodynamically stable overnight and is breathing comfortably. The patient will begin ambulating in hallways today. The assessment and plan as outlined above was discussed with the patient and/or family members who expressed understanding and agreement. All questions were answered. - Subjective Procedure(s) Performed: POD#5 S/P CABG4 Interval history: The patient remained hemodynamic stable overnight. She is breathing comfortably. She has no complaints. Vital Signs, Last 4 Hours Temp Pulse Resp BP Pulse Ox 12/19/16 07:50 97.6 F 96 18 105/51 97 12/19/16 07:33 16 105/51 97 12/19/16 05:20 18 93 Oxgyen Flow Rate Oxygen Flow Rate (LPM) 3 Clinical Data, last 8 Hours Output, Urine Amount 180 Weight 12/17/16 12/18/16 12/19/16 23:59 23:59 23:59 Weight 73.936 kg 73.8 kg 74.5 kg - Physical Examination General: Conversant, No Apparent Distress Neck: No JVD, Normal carotid pulses Cardiac: Reg Rate and Rhythm, Normal S1 and S2, No Murmur Incision: No signs of infection, Dry/intact dressing Sternum: Stable Pacing Wires: In place Lungs: Normal Breath Sounds, No Wheeze, Rales, Rhonchi Neuro: Alert and responsive, No focal deficits noted Vascular: Normal capillary refill Extremities: No Clubbing, No Cyanosis, No Edema - Labs 12/18/16 01:50 12/18/16 01:50 - VTE Documentation of Mechanical Device: Graduated compression elastic hosiery Consult Discharge Plan - Plan Referrals: Broderick Zhao DO [Primary Care Provider] - (DR. ZHAO'S OFFICE WILL NOT MAKE APPOINTMENTS FOR US HE WANTS THE PATIENT TO CALL AND MAKE THEIR OWN) Manav Pearl MD [Partnered Physician] - 01/21/17 2:15 pm Kourtney Austin CNP [Partnered Physician] - 01/05/17 8:30 am
[2016-12-19] MEDS: Acetaminophen 325 MG TABLET PO PRN (22:52)
[2016-12-20] MEDS: *HR* OxyCODONE/APAP 5/325 TABLET PO PRN ×7 (00:34→23:59)
[2016-12-20] MEDS: *HR* Heparin 5,000 UNIT/ML VIAL SQ SCH ×2 (05:53→17:36)
--- NOTE | 2016-12-20 07:28 | Cardiothoracic Progress Note ---
Date of Encounter: 12/20/16 Time of Encounter: 07:26 - Assessment and plan (1) NSTEMI (non-ST elevated myocardial infarction) Current Visit: Yes Status: Acute The patient is recovering well from her CABG4. She remained hemodynamically stable overnight and is breathing comfortably. The patient will continue ambulating in hallways today. The beta tigre dosage will be decreased for decreased systolic pressure. The assessment and plan as outlined above was discussed with the patient and/or family members who expressed understanding and agreement. All questions were answered. - Subjective Procedure(s) Performed: POD#6 S/P CABG4 Interval history: The patient remained hemodynamic stable overnight. She is breathing comfortably. She has no complaints. Vital Signs, Last 4 Hours Temp Pulse Resp BP Pulse Ox 12/20/16 04:10 89 12/20/16 03:54 97.8 F 87 18 99/89 94 12/20/16 03:44 16 95 Oxgyen Flow Rate Oxygen Flow Rate (LPM) 1 Clinical Data, last 8 Hours Output, Urine Amount 200 Output, Urine Amount 100 Weight 12/18/16 12/19/16 12/20/16 23:59 23:59 23:59 Weight 73.8 kg 74.5 kg 74.3 kg - Physical Examination General: Conversant, No Apparent Distress Neck: No JVD, Normal carotid pulses Cardiac: Reg Rate and Rhythm, Normal S1 and S2, No Murmur Incision: No signs of infection, Dry/intact dressing Sternum: Stable Pacing Wires: In place Lungs: Normal Breath Sounds, No Wheeze, Rales, Rhonchi Neuro: Alert and responsive, No focal deficits noted Vascular: Normal capillary refill Musculoskeletal: No Chest Wall Tenderness Extremities: No Clubbing, No Cyanosis, No Edema - Labs 12/18/16 01:50 12/18/16 01:50 - VTE Documentation of Mechanical Device: Graduated compression elastic hosiery Consult Discharge Plan - Plan Referrals: Broderick Zhao DO [Primary Care Provider] - (DR. ZHAO'S OFFICE WILL NOT MAKE APPOINTMENTS FOR US HE WANTS THE PATIENT TO CALL AND MAKE THEIR OWN) Manav Pearl MD [Partnered Physician] - 01/21/17 2:15 pm Kourtney Austin CNP [Partnered Physician] - 01/05/17 8:30 am
[2016-12-20] MEDS: Chlorhexidine Rinse 15 ML MOUTHWASH MM SCH ×2 (08:18→19:57)
[2016-12-20] MEDS: Pantoprazole 40 MG VIAL IVP SCH (08:18)
[2016-12-20] MEDS: Aspirin Enteric Coated 81 MG Tablet PO SCH (08:19)
[2016-12-20] MEDS: *HR* Amiodarone 200 MG TABLET PO SCH (08:19)
[2016-12-20] MEDS: Insulin LISPRO 300 UNITS/3 ML VIAL SQ SCH ×4 (08:20→21:02)
[2016-12-20] MEDS: Bisacodyl 10 MG RECTAL SUPPOSITORY RC PRN (17:43)
[2016-12-21] MEDS: *HR* OxyCODONE/APAP 5/325 TABLET PO PRN ×5 (05:32→23:02)
[2016-12-21] MEDS: *HR* Heparin 5,000 UNIT/ML VIAL SQ SCH ×2 (05:32→18:45)
[2016-12-21] MEDS: *HR* Amiodarone 200 MG TABLET PO SCH (07:43)
[2016-12-21] MEDS: Aspirin Enteric Coated 81 MG Tablet PO SCH (07:43)
[2016-12-21] MEDS: Pantoprazole 40 MG VIAL IVP SCH (07:43)
[2016-12-21] MEDS: Ondansetron 4 MG/2 ML VIAL IVP PRN (07:43)
[2016-12-21] MEDS: Chlorhexidine Rinse 15 ML MOUTHWASH MM SCH ×2 (07:48→20:59)
[2016-12-21] MEDS: Insulin LISPRO 300 UNITS/3 ML VIAL SQ SCH ×4 (07:51→20:21)
--- NOTE | 2016-12-21 09:58 | Cardiothoracic Progress Note ---
Date of Encounter: 12/21/16 Time of Encounter: 09:56 - Assessment and plan (1) NSTEMI (non-ST elevated myocardial infarction) Current Visit: Yes Status: Acute We will plan for the patient to be discharged tomorrow. - Subjective Interval history: The patient has no complaints and feels that she will be ready to go home tomorrow. Vital Signs, Last 4 Hours Temp Pulse Resp BP Pulse Ox 12/21/16 07:53 16 97 12/21/16 07:50 104 12/21/16 07:19 97.6 F 105 16 116/65 97 Oxgyen Flow Rate Oxygen Flow Rate (LPM) 1 Clinical Data, last 8 Hours Output, Urine Amount 450 Weight 12/19/16 12/20/16 12/21/16 23:59 23:59 23:59 Weight 74.5 kg 74.3 kg Lungs are clear to percussion and auscultation. Heart is in a normal sinus rhythm. All incisions are healing well without signs of infection and the sternum is stable. - Labs 12/18/16 01:50 12/18/16 01:50 - VTE Documentation of Mechanical Device: Graduated compression elastic hosiery Consult Discharge Plan - Plan Referrals: Broderick Zhao DO [Primary Care Provider] - (DR. ZHAO'S OFFICE WILL NOT MAKE APPOINTMENTS FOR US HE WANTS THE PATIENT TO CALL AND MAKE THEIR OWN) Manav Pearl MD [Partnered Physician] - 01/21/17 2:15 pm Kourtney Austin CNP [Partnered Physician] - 01/05/17 8:30 am
[2016-12-21] MEDS: Bisacodyl 10 MG RECTAL SUPPOSITORY RC PRN (18:51)
[2016-12-22] MEDS: *HR* OxyCODONE/APAP 5/325 TABLET PO PRN ×2 (03:03→12:16)
[2016-12-22] MEDS: *HR* Heparin 5,000 UNIT/ML VIAL SQ SCH (06:01)
[2016-12-22 07:33] VITALS: BP 99/52
[2016-12-22] MEDS: Insulin LISPRO 300 UNITS/3 ML VIAL SQ SCH ×2 (07:42→12:11)
[2016-12-22] MEDS: Acetaminophen 325 MG TABLET PO PRN (07:53)
[2016-12-22] MEDS: Chlorhexidine Rinse 15 ML MOUTHWASH MM SCH (09:32)
[2016-12-22] MEDS: *HR* Amiodarone 200 MG TABLET PO SCH (09:33)
[2016-12-22] MEDS: Aspirin Enteric Coated 81 MG Tablet PO SCH (09:33)
--- NOTE | 2016-12-22 10:02 | Discharge Summary ---
Date of Encounter: 12/22/16 Time of Encounter: 09:55 - Discharge Diagnosis (1) NSTEMI (non-ST elevated myocardial infarction) Priority: Primary Status: Acute - Discharge Medications Prescriptions: OxyCODONE/APAP 5/325 [Percocet 5/325 MG] 1 each PO Q4HR PRN #40 tab PRN Reason: Severe Pain Nitroglycerin 0.4 mg SL Q5MIN PRN #20 PRN Reason: Chest Pain Amiodarone [Cordarone] 200 mg PO DAILY #30 tab Atorvastatin [Lipitor] 80 mg PO HS #30 tab BuPROPion SR (12 HR) [Wellbutrin SR] 150 mg PO DAILY #30 tablet.er Home Medications: Amitriptyline [Elavil] 20 mg PO HS 12/09/16 [History] Oxycodone HCl/Acetaminophen [Percocet 5-325 mg Tablet] 1 each PO Q8H PRN [History] Propranolol HCl [Inderal LA] 120 mg PO DAILY 12/09/16 [History] SUMAtriptan succinate [Imitrex] 50 mg PO DAILY PRN 12/09/16 [History] Amiodarone [Cordarone] 200 mg PO DAILY #30 tab 12/22/16 [Rx] Aspirin Enteric Coated [Aspirin EC] 81 mg PO DAILY 12/22/16 [Rx] Atorvastatin [Lipitor] 80 mg PO HS #30 tab 12/22/16 [Rx] BuPROPion SR (12 HR) [Wellbutrin SR] 150 mg PO DAILY #30 tablet.er 12/22/16 [Rx] Nitroglycerin 0.4 mg SL Q5MIN PRN #20 12/22/16 [Rx] OxyCODONE/APAP 5/325 [Percocet 5/325 MG] 1 each PO Q4HR PRN #40 tab 12/22/16 [Rx ] Allergies/Adverse Reactions: Allergies codeine Allergy (Verified 08/21/16 14:35) Nausea nitroglycerin Adverse Reaction (Verified 12/14/16 06:48) Unresponsive Procedures/tests Complete & Pending: Procedures Performed prior 72 hours Category Date Time Status EV echocardiogram Routine Y 12/21/16 07:28 Completed Date of admission: 12/09/16 19:42 Primary care physician: Broderick Durán Consults: 12/11/16 08:34 Consult to Chemical Treatment Operator [CONS] Routine Reason for SW Consult: POA 12/14/16 13:21 Consult to Cardiac Rehabilitation-Phase1 [CONS] Routine Comment: Reason for Consult: Post open heart Call Completed: Yes 12/17/16 11:34 Consult for Pharmacy Education [CONS] Routine Reason for Consult: Post-Op Heart Call Completed: Yes Consult to Occupational Therapy [CONS] Routine Comment: Evaluate, develop and implement POC Reason for Consult: Post-Op Heart Consult to Physical Therapy [CONS] Routine Comment: Evaluate, develop and implement POC Reason for Consult: Post open heart Procedure(s) Performed: 1. 38 catheterization performed December 09, 2016. 2. CABG 4 (CALHOUN to LAD, sequential SVG to D1 then OM1, SVG to PDA) performed December 14, 2016. 3. Endoscopic vein harvesting, greater saphenous vein from right lower extremity performed December 14, 2016. Discharging clinician: Manav Pearl Anticipated date of discharge: 12/22/16 - Patient Status Disposition: Home, Self-Care Condition: Good Functional capacity at discharge: independent ambulation Overall status at discharge: patient is progressing back to baseline - Discharge Instructions Follow Up With: Broderick Durán DO [Primary Care Provider] - (DR. DURÁN'S OFFICE WILL NOT MAKE APPOINTMENTS FOR US HE WANTS THE PATIENT TO CALL AND MAKE THEIR OWN) Manav Pearl MD [Partnered Physician] - 01/21/17 2:15 pm Kourtney Austin CNP [Partnered Physician] - 01/05/17 8:30 am - Diet and Activity Activity: sternal precautions, no driving for four weeks, no lifting greater than 10 pounds for eight weeks Diet: low fat, low cholesterol - Hospital Course Hospital course: Ms. Vogel is a 61 year old otherwise healthy lady who had sudden onset of neck pain radiating to her retrosternal area yesterday. She had associated shortness of breath, dyspnea on exertion, diaphoresis, and nausea. She was evaluated at [facility] emergency department and found to have an acute NSTEMI. She was given aspirin and Brilinta in the emergency department. She was then taken for an urgent cardiac catheterization and this revealed severe 3 vessel CAD. A 99% mid RCA lesion was ballooned with reestablishment of MARY-3 flow. The patient has been recommended for urgent CABG. Given the fact the patient has received antiplatelet therapy and suffered an inferior CT, the CABG we will be delayed 5 days to allow the antiplatelet effect to dissipate and the inferior wall to recover from the infarction. The patient underwent CABG4 on December 14, 2016. Her postoperative course was relatively uncomplicated, although she did develop postoperative atrial fibrillation which converted to normal sinus rhythm with medical therapy. She was ambulating in the hallways without complaints of substernal chest pain or shortness of breath. She was discharged home on POD#8. - Time Spent with Patient Total time spent providing and/or coordinating discharge services: Physical Examination Vital Signs, Last 4 Hours Temp Pulse Resp BP Pulse Ox 12/22/16 09:43 88 95 12/22/16 07:42 18 92 12/22/16 07:27 98.2 F 85 18 99/52 93 General: Conversant, No Apparent Distress HEENT: Atraumatic, Normocephaly, Trachea midline Neck: No JVD, Normal carotid pulses Cardiac: Reg Rate and Rhythm, Normal S1 and S2, No Murmur Lungs: Normal Breath Sounds, No Wheeze, Rales, Rhonchi Neuro: Alert and responsive, No focal deficits noted Vascular: Normal capillary refill Skin: No rashes noted on visualized skin Extremities: No Clubbing, No Cyanosis, No Edema Open Heart Registry Aspirin Cont/Prescribed at DC: Yes Beta Armen Cont/Prescribed at DC: Yes Statin Cont/Prescribed at DC: Yes JITENDRA/ARB Cont/Prescribed at DC: Not indicated (LVEF greater than 50%.) - VTE Documentation of Mechanical Device: Graduated compression elastic hosiery
[2016-12-22] MEDS: Bisacodyl 10 MG RECTAL SUPPOSITORY RC PRN (10:18)
== END 2016-12-22 12:45 | disposition home or self-care (01) | DRG 165 ==
LOC: EMEROO 16:02 → ICNU 16:02 → EMEROO 18:37 → 2NNU 12-11 14:46 → UNDODISIN 12-12 11:35 → ICNU 12-14 09:01 → 2NNU 12-17 13:01
PROVIDERS: ADMIT Emergency Medicine; ATTEND Internal Medicine

== ENCOUNTER 2017-09-28 06:54 | Observation (INO) ==
[2017-09-28] MEDS ORDERED: Ondansetron 4 MG/2 ML VIAL IVP ONE (07:14)
--- NOTE | 2017-09-28 07:25 | Emergency Department Note ---
Disposition Clinical Impression: Dehydration Intractable nausea and vomiting Qualifiers: Vomiting type: unspecified Qualified Code(s): R11.2 - Nausea with vomiting, unspecified Disposition: Admitted As Inpatient Condition: Fair Referrals: Broderick Durán DO [Primary Care Provider] - Forms: ED Satisfaction Letter General Adult HPI - General Chief complaint: ED Nausea/Vomiting/Diarrhea Stated complaint: vomiting Time Seen by Provider: 09/28/17 07:01 Source: patient Limitations: no limitations Nursing Notes Reviewed: Yes Vital Signs Reviewed: Yes - History of Present Illness HPI Narrative: 62 year old female presents with nausea vomiting. Patient stated the symptoms started on Wednesday (2 days ago). She vomited food content every 2 hour. Associated with sweating. She could not keep any food and fluid down. Mild abdominal pain due to frequent vomiting. no chill and fever, no dysuria. Last time bowel movement was before Wednesday. No body ache. No chest pain , no shortness breath. No diarrhea. Patient stated she had heart attack last December with the similar symptoms. Patient is a currently on aspirin and statins. Patient is a daily smoker with 1 PDD. Onset (ago): day(s) (2) Radiation: non-radiation Pain Scale: 0 Consistency: constant Improves with: nothing Worsens with: nothing Associated symptoms: Reports: diaphoresis. Denies: fever/chills - Related Data Home Medications Medication Instructions Recorded Confirmed Amitriptyline [Elavil] 20 mg PO HS 12/09/16 12/09/16 Oxycodone HCl/Acetaminophen 1 each PO Q8H PRN 12/09/16 12/09/16 [Percocet 5-325 mg Tablet] Propranolol HCl [Inderal LA] 120 mg PO DAILY 12/09/16 12/09/16 SUMAtriptan succinate [Imitrex] 50 mg PO DAILY PRN 12/09/16 12/09/16 Previous Rx's Medication Instructions Recorded Amiodarone [Cordarone] 200 mg PO DAILY #30 tab 12/22/16 Aspirin Enteric Coated [Aspirin EC] 81 mg PO DAILY 12/22/16 Atorvastatin [Lipitor] 80 mg PO HS #30 tab 12/22/16 BuPROPion SR (12 HR) [Wellbutrin 150 mg PO DAILY #30 tablet.er 12/22/16 SR] Nitroglycerin 0.4 mg SL Q5MIN PRN #20 12/22/16 OxyCODONE/APAP 5/325 [Percocet 1 each PO Q4HR PRN #40 tab 12/22/16 5/325 MG] Allergies Allergy/AdvReac Type Severity Reaction Status Date / Time codeine Allergy Nausea Verified 08/21/16 14:35 nitroglycerin AdvReac Unresponsiv Verified 12/14/16 06:48 e Constitutional: Denies: fever, chills, weakness, weight change Eyes: Denies: eye pain, eye discharge, vision change ENT ED: Denies: ear pain, throat pain, dental pain, hearing loss, epistaxis, congestion, dysphagia Cardiovascular: Denies: chest pain, palpitations, dyspnea on exertion, edema, syncope Respiratory: Denies: cough, dyspnea, wheezes, hemoptysis, stridor Gastrointestinal: Reports: abdominal pain (Very mild), nausea, vomiting. Denies : diarrhea, constipation, hematemesis, melena, hematochezia Genitourinary: Denies: dysuria, frequency, hematuria, discharge Musculoskeletal: Denies: back pain, neck pain, arthralgia, myalgia Integumentary: Denies: rash, abrasion, lesions Neurological: Denies: headache, weakness, numbness, paresthesias, confusion, abnormal gait, vertigo Psychiatric: Denies: anxiety, depression, suicidal thoughts, homicidal thoughts , auditory hallucinations, visual hallucinations Endocrine: Denies: fatigue Hematological/Lymphatic: Denies: easy bleeding, easy bruising Allergic/Immunologic: Denies: facial swelling, urticaria Past Medical History - Past Medical History Medical history: Reports: coronary artery disease, migraine, myocardial infarction Surgical history: Reports: , other (Tonsillectomy and adenoidectomy) Psychiatric history: Reports: no psych history TRIGONOMETRY TUTOR history: Reports: bilateral tubal ligation - Social History Smoking Status: Current every day smoker Smokeless Tobacco Status: No Alcohol use: Reports: none Drug use: Reports: none Physical Exam - General Limitations: no limitations General appearance: alert, in no apparent distress - Head Head exam: atraumatic, normocephalic, normal inspection - Eye Eye exam: Present: normal appearance, PERRL, EOMI. Absent: scleral icterus, conjunctival injection - ENT ENT exam: normal exam, normal oropharynx, mucous membranes moist - Expanded ENT Exam External ear exam: Present: normal external inspection Mouth exam: Present: normal external inspection Teeth exam: Present: normal inspection Throat exam: Present: normal inspection - Neck Neck exam: Present: normal inspection, full ROM, trachea midline - Chest Chest inspection: Present: normal inspection, symmetric chest wall rise - Respiratory Respiratory exam: Present: normal lung sounds bilaterally - Cardiovascular Cardiovascular exam: Present: regular rate, normal rhythm, normal heart sounds - Abdominal Exam Abdominal exam: Present: soft, tenderness. Absent: distention, guarding, rebound, rigidity Abdominal tenderness: Present: epigastrium (And daniela-umbilicus ), mild - Extremities Exam Extremities exam: Present: normal inspection, full ROM. Absent: tenderness, pedal edema - Expanded Upper Extremity Exam Shoulder exam: Present: normal inspection, full ROM Arm exam: Present: normal inspection, full ROM Elbow exam: Present: normal inspection, full ROM Forearm/Wrist exam: Present: normal inspection, full ROM Hand exam: Present: normal inspection, full ROM Vascular exam: Normal: capillary refill, radial pulse - Expanded Lower Extremity Exam Hip/Pelvis exam: Present: normal inspection, full ROM Upper leg exam: Present: normal inspection, full ROM Knee exam: Present: normal inspection, full ROM Lower leg exam: Present: normal inspection, full ROM Ankle exam: Present: normal inspection, full ROM Foot/toe exam: Present: normal inspection, full ROM Neurovascular/Tendon exam: Absent: motor deficit, sensory deficit, tendon deficit - Back Exam Back exam: Present: normal inspection, full ROM. Absent: tenderness - Neurological Exam Neurological exam: Present: alert, oriented X3 - Expanded Neurological Exam Patient oriented to: Present: person, place, time Coma Scale Eye Opening: Spontaneous Coma Scale Motor Response: Obeys Commands Coma Scale Verbal Response: Oriented Coma Scale Total: 15 - Psychiatric Psychiatric exam: Present: normal affect, normal mood - Skin Skin exam: Present: warm, dry, intact, normal color Course Vital Signs Temperature 98.1 F 09/28/17 06:59 Pulse Rate 81 09/28/17 06:59 Respiratory Rate 18 09/28/17 06:59 Blood Pressure 143/81 09/28/17 06:59 O2 Sat by Pulse Oximetry 88 09/28/17 06:59 Temperature 98.1 F 09/28/17 06:59 Pulse Rate 81 09/28/17 10:41 Respiratory Rate 16 05/22/18 10:41 Blood Pressure 131/57 05/22/18 10:41 O2 Sat by Pulse Oximetry 97 09/28/17 10:41 Oxygen Delivery Oxygen Delivery Room Air Medical Decision Making - [facility] Narrative Medical decision making narrative: 62 year old female presents with some nausea and vomiting for 2 days. Associated with mild abdominal pain and diaphoresis. No chest pain. no chills and fever. Daily smoker. Past medical history of a heart attack in December 2016. Per patient she had a similar symptoms when she had a heart attack. Physical exam: O2 sat 88 in the room L, sick looking, bilateral lung sounds clear, sinus rhythm, no murmur, normal bowel sounds, abdomen soft, epigastric and the daniela-umbilical tender to palpation. Differential: Abdominal pain, bowel obstruction, angina, PE, influenza. Labs: negative troponin, slightly elevated D-Dimer. No changing EKG, Chest CT not indicated PE. abdomen CT: no bowel obstruction or other acute abnormality. Pt was given Zofran, Phenagan and Raglan. No report for relieve nausea. Impression: intractable nausea/vomiting, dehydration. Spoke with hospitalist Dr. Sánchez, pt will be admitted to hospitalist service. Dr. Gaffney saw the patient and agrees the above plan. - Lab Data Lab results reviewed: Yes I reviewed the patient's lab results. Result diagrams: 09/28/17 07:38 09/28/17 07:38 Lab Results 09/28/17 09/28/17 09/28/17 Range/Units 07:38 07:38 07:38 WBC 9.7 (4.3-11.1) K/mcL RBC 5.13 H (3.82-4.97) M/mcL Hgb 15.3 (11.5-15.4) g/dL Hct 45.1 H (35.3-44.9) % MCV 87.9 (83.0-100.0) fL MCH 29.8 (28.0-33.3) pg MCHC 33.9 (31.6-35.5) g/dL RDW 13.5 (11.5-14.5) % Plt Count 263 (140-400) K/mcL MPV 10.1 (9.4-12.4) fL Immature Gran % 0.2 (0-4) % Seg Neutrophils % 80.0 % Lymphocytes % 13.8 % Monocytes % 5.5 % Eosinophils % 0.3 % Basophils % 0.2 % Neutrophils # 7.8 (1.6-8.9) K/mcL Lymphocytes # 1.3 (0.6-4.6) K/mcL Monocytes # 0.5 (0.0-1.3) K/mcL Eosinophils # 0.0 (0.0-0.6) K/mcL Basophils # 0.0 (0.0-0.2) K/mcL D-Dimer 789 H (0-500) ng/mLFEU Sodium 143 (136-145) mEq/L Potassium 3.5 (3.5-5.1) mEq/L Chloride 103 (98-107) mEq/L Carbon Dioxide 28 (23-29) mEq/L BUN 17 (8-23) mg/dL Creatinine 0.74 (0.60-1.20) mg/dL Est GFR ( Amer) > 60 (> 60) Est GFR (Non-Af Amer) > 60 (> 60) BUN/Creatinine Ratio 23 (6-26) Glucose 136 H (70-105) mg/dL Calculated Osmolality 300 (280-300) Calcium 9.8 (8.6-10.3) mg/dL Total Bilirubin 0.6 (0.3-1.0) mg/dL AST 14 (13-39) Units/L ALT 14 (7-52) Units/L Alkaline Phosphatase 117 H (34-104) Units/L Troponin I < 0.03 (< 0.04) ng/mL Serum Total Protein 7.5 (6.4-8.9) g/dL Albumin 4.5 (3.5-5.7) g/dL Globulin 3.0 (2.4-3.5) g/dL Albumin/Globulin Ratio 1.5 (1.1-2.2) Lipase 22 (11-82) Units/L Urine Color (Yellow) Urine Clarity (Clear) Urine pH (5.0-8.0) pH Units Ur Specific Delanson (1.010-1.025) Urine Protein (Neg-Trace) mg/dL Urine Glucose (UA) (Normal) mg/dL Urine Ketones (Negative) mg/dL Urine Blood (Negative) Urine Nitrite (Negative) Urine Bilirubin (Negative) Urine Urobilinogen (Normal) mg/dL Ur Leukocyte Esterase (Negative) Urine Microscopic RBC (0-3) per hpf Urine Microscopic WBC (0-3) per hpf Ur Squamous Epith Cells (None-Few) per lpf Urine Bacteria (None-Few) per hpf Hyaline Casts (None-Few) per lpf Ur Culture Indicated? (NO) 09/28/17 Range/Units 07:46 WBC (4.3-11.1) K/mcL RBC (3.82-4.97) M/mcL Hgb (11.5-15.4) g/dL Hct (35.3-44.9) % MCV (83.0-100.0) fL MCH (28.0-33.3) pg MCHC (31.6-35.5) g/dL RDW (11.5-14.5) % Plt Count (140-400) K/mcL MPV (9.4-12.4) fL Immature Gran % (0-4) % Seg Neutrophils % % Lymphocytes % % Monocytes % % Eosinophils % % Basophils % % Neutrophils # (1.6-8.9) K/mcL Lymphocytes # (0.6-4.6) K/mcL Monocytes # (0.0-1.3) K/mcL Eosinophils # (0.0-0.6) K/mcL Basophils # (0.0-0.2) K/mcL D-Dimer (0-500) ng/mLFEU Sodium (136-145) mEq/L Potassium (3.5-5.1) mEq/L Chloride (98-107) mEq/L Carbon Dioxide (23-29) mEq/L BUN (8-23) mg/dL Creatinine (0.60-1.20) mg/dL Est GFR ( Amer) (> 60) Est GFR (Non-Af Amer) (> 60) BUN/Creatinine Ratio (6-26) Glucose (70-105) mg/dL Calculated Osmolality (280-300) Calcium (8.6-10.3) mg/dL Total Bilirubin (0.3-1.0) mg/dL AST (13-39) Units/L ALT (7-52) Units/L Alkaline Phosphatase (34-104) Units/L Troponin I (< 0.04) ng/mL Serum Total Protein (6.4-8.9) g/dL Albumin (3.5-5.7) g/dL Globulin (2.4-3.5) g/dL Albumin/Globulin Ratio (1.1-2.2) Lipase (11-82) Units/L Urine Color Dark Yellow (Yellow) Urine Clarity Cloudy A (Clear) Urine pH 6.5 (5.0-8.0) pH Units Ur Specific [place]anson 1.023 (1.010-1.025) Urine Protein 30 H (Neg-Trace) mg/dL Urine Glucose (UA) Normal (Normal) mg/dL Urine Ketones Trace H (Negative) mg/dL Urine Blood Negative (Negative) Urine Nitrite Negative (Negative) Urine Bilirubin Small H (Negative) Urine Urobilinogen Normal (Normal) mg/dL Ur Leukocyte Esterase Negative (Negative) Urine Microscopic RBC 0-3 (0-3) per hpf Urine Microscopic WBC 0-3 (0-3) per hpf Ur Squamous Epith Cells Many H (None-Few) per lpf Urine Bacteria None Seen (None-Few) per hpf Hyaline Casts Few (None-Few) per lpf Ur Culture Indicated? NO (NO) - Radiology Data Radiology results reviewed: Yes I reviewed the patient's radiology results. Attestation Statement - Attestation Attestation: I, Erasto Gaffney DO have provided [id number] time during the care of this patient. Detailed review the presentation, symptoms, medical history were discussed and reviewed with the mid-level provider Kun Castillo PA-C/[employer]. Medical intervention labs and imaging studies were reviewed in detail. See full documentation of physical exam and course of care in the mid-level provider's note. I agree with the determined course of care, medical intervention and disposition put forth by the mid-level provider. See below documentation for changes or alterations in documentation.
[2017-09-28] MEDS ORDERED: 0.9 % Sodium Chloride 1,000 ML IVC ONE (07:30)
[2017-09-28 07:55] LABS: Basophils % 0.2 %; Eosinophils % 0.3 %; Hematocrit 45.1 % (35.3-44.9); Hemoglobin 15.3 g/dL (11.5-15.4); Immature Granulocytes % 0.2 % (0-4); Lymphocytes # 1.3 K/mcL (0.6-4.6); Lymphocytes % 13.8 %; Mean Corpuscular HGB Conc 33.9 g/dL (31.6-35.5); Mean Corpuscular Hemoglobin 29.8 pg (28.0-33.3); Mean Corpuscular Volume 87.9 fL (83.0-100.0); Mean Platelet Volume 10.1 fL (9.4-12.4); Monocytes # 0.5 K/mcL (0.0-1.3); Monocytes % 5.5 %; Neutrophils # 7.8 K/mcL (1.6-8.9); Platelet Count 263 K/mcL (140-400); Red Blood Count 5.13 M/mcL (3.82-4.97); Red Cell Distribution Width 13.5 % (11.5-14.5)
[2017-09-28 07:56] LABS: Bilirubin,Urine Small (Negative); Blood,Urine Negative (Negative); Clarity,Urine Cloudy (Clear); Color,Urine Dark Yellow (Yellow); Glucose,Urine (UA) Normal (Normal); Ketones,Urine Trace mg/dL (Negative); Leukocyte Esterase,Urine Negative (Negative); Nitrite,Urine Negative (Negative); PH,Urine 6.5 pH Units (5.0-8.0); Protein,Urine 30 mg/dL (Neg-Trace); Specific Gravity,Urine 1.023 (1.010-1.025); Urobilinogen,Urine Normal (Normal)
[2017-09-28 07:58] LABS: Bacteria,Urine None Seen per hpf (None-Few); Hyaline Casts,Urine Few per lpf (None-Few); RBC,Urine 0-3 per hpf (0-3); Squamous Epithelial Cell,Urine Many per lpf (None-Few); WBC,Urine 0-3 per hpf (0-3)
[2017-09-28 08:14] LABS: Alanine Aminotransferase 14 Units/L (7-52); Albumin 4.5 g/dL (3.5-5.7); Albumin/Globulin Ratio 1.5 (1.1-2.2); Alkaline Phosphatase 117 Units/L (34-104); Aspartate Amino Transferase 14 Units/L (13-39); BUN/Creatinine Ratio 23 (6-26); Bilirubin,Total 0.6 mg/dL (0.3-1.0); Blood Urea Nitrogen 17 mg/dL (8-23); Calcium 9.8 mg/dL (8.6-10.3); Carbon Dioxide 28 mEq/L (23-29); Chloride 103 mEq/L (98-107); Glucose 136 mg/dL (70-105); Lipase 22 Units/L (11-82); Osmolality,Calculated 300 (280-300); Potassium 3.5 mEq/L (3.5-5.1); Sodium 143 mEq/L (136-145); Total Protein 7.5 g/dL (6.4-8.9); eGFR For African Americans > 60 (> 60); eGFR For Non-African Americans > 60 (> 60)
[2017-09-28] MEDS ORDERED: Isovue-370 500 ML INFUS..BTL IV ONE ×2 (08:33)
--- NOTE | 2017-09-28 08:39 | Emergency Department Note ---
Disposition Clinical Impression: Dehydration Intractable nausea and vomiting Qualifiers: Vomiting type: unspecified Qualified Code(s): R11.2 - Nausea with vomiting, unspecified Disposition: Admitted As Inpatient Condition: Fair Time of Disposition: 12:40 General Adult HPI - General Chief complaint: ED Nausea/Vomiting/Diarrhea Stated complaint: vomiting Time Seen by Provider: 09/28/17 07:01 Source: patient Limitations: no limitations - History of Present Illness Pain Scale: 0 Improves with: nothing Worsens with: nothing Associated symptoms: Reports: diaphoresis. Denies: fever/chills - Related Data Home Medications Medication Instructions Recorded Confirmed Amitriptyline [Elavil] 20 mg PO HS 12/09/16 09/28/17 Propranolol HCl [Inderal LA] 120 mg PO DAILY 12/09/16 09/28/17 SUMAtriptan succinate [Imitrex] 50 mg PO DAILY PRN 12/09/16 09/28/17 Previous Rx's Medication Instructions Recorded Aspirin Enteric Coated [Aspirin EC] 81 mg PO DAILY 12/22/16 Atorvastatin [Lipitor] 80 mg PO HS #30 tab 12/22/16 Nitroglycerin 0.4 mg SL Q5MIN PRN #20 12/22/16 Allergies Allergy/AdvReac Type Severity Reaction Status Date / Time codeine Allergy Nausea Verified 08/21/16 14:35 nitroglycerin AdvReac Unresponsiv Verified 12/14/16 06:48 e Constitutional: Denies: fever, chills, weakness, weight change Eyes: Denies: eye pain, eye discharge, vision change ENT ED: Denies: ear pain, throat pain, dental pain, hearing loss, epistaxis, congestion, dysphagia Cardiovascular: Denies: chest pain, palpitations, dyspnea on exertion, edema, syncope Respiratory: Denies: cough, dyspnea, wheezes, hemoptysis, stridor Gastrointestinal: Reports: abdominal pain (Very mild), nausea, vomiting. Denies : diarrhea, constipation, hematemesis, melena, hematochezia Genitourinary: Denies: dysuria, frequency, hematuria, discharge Musculoskeletal: Denies: back pain, neck pain, arthralgia, myalgia Integumentary: Denies: rash, abrasion, lesions Neurological: Denies: headache, weakness, numbness, paresthesias, confusion, abnormal gait, vertigo Psychiatric: Denies: anxiety, depression, suicidal thoughts, homicidal thoughts , auditory hallucinations, visual hallucinations Endocrine: Denies: fatigue Hematological/Lymphatic: Denies: easy bleeding, easy bruising Allergic/Immunologic: Denies: facial swelling, urticaria Past Medical History - Past Medical History Medical history: Reports: coronary artery disease, migraine, myocardial infarction Surgical history: Reports: , other (Tonsillectomy and adenoidectomy) Psychiatric history: Reports: no psych history 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 - Social History Smoking Status: Current every day smoker Smokeless Tobacco Status: No Alcohol use: Reports: none Drug use: Reports: none Physical Exam - General Limitations: no limitations General appearance: alert, in no apparent distress Course Vital Signs Temperature 98.1 F 09/28/17 06:59 Pulse Rate 81 09/28/17 06:59 Respiratory Rate 18 09/28/17 06:59 Blood Pressure 143/81 09/28/17 06:59 O2 Sat by Pulse Oximetry 88 09/28/17 06:59 Temperature 98.1 F 09/28/17 06:59 Pulse Rate 80 09/28/17 12:27 Respiratory Rate 16 09/28/17 12:27 Blood Pressure 128/70 09/28/17 12:27 O2 Sat by Pulse Oximetry 94 09/28/17 12:27 Oxygen Delivery Oxygen Delivery Room Air Medical Decision Making - Lab Data Result diagrams: 09/28/17 07:38 09/28/17 07:38 Lab Results 09/28/17 09/28/17 09/28/17 Range/Units 07:38 07:38 07:38 WBC 9.7 (4.3-11.1) K/mcL RBC 5.13 H (3.82-4.97) M/mcL Hgb 15.3 (11.5-15.4) g/dL Hct 45.1 H (35.3-44.9) % MCV 87.9 (83.0-100.0) fL MCH 29.8 (28.0-33.3) pg MCHC 33.9 (31.6-35.5) g/dL RDW 13.5 (11.5-14.5) % Plt Count 263 (140-400) K/mcL MPV 10.1 (9.4-12.4) fL Immature Gran % 0.2 (0-4) % Seg Neutrophils % 80.0 % Lymphocytes % 13.8 % Monocytes % 5.5 % Eosinophils % 0.3 % Basophils % 0.2 % Neutrophils # 7.8 (1.6-8.9) K/mcL Lymphocytes # 1.3 (0.6-4.6) K/mcL Monocytes # 0.5 (0.0-1.3) K/mcL Eosinophils # 0.0 (0.0-0.6) K/mcL Basophils # 0.0 (0.0-0.2) K/mcL D-Dimer 789 H (0-500) ng/mLFEU Sodium 143 (136-145) mEq/L Potassium 3.5 (3.5-5.1) mEq/L Chloride 103 (98-107) mEq/L Carbon Dioxide 28 (23-29) mEq/L BUN 17 (8-23) mg/dL Creatinine 0.74 (0.60-1.20) mg/dL Est GFR ( Amer) > 60 (> 60) Est GFR (Non-Af Amer) > 60 (> 60) BUN/Creatinine Ratio 23 (6-26) Glucose 136 H (70-105) mg/dL Calculated Osmolality 300 (280-300) Calcium 9.8 (8.6-10.3) mg/dL Total Bilirubin 0.6 (0.3-1.0) mg/dL AST 14 (13-39) Units/L ALT 14 (7-52) Units/L Alkaline Phosphatase 117 H (34-104) Units/L Troponin I < 0.03 (< 0.04) ng/mL Serum Total Protein 7.5 (6.4-8.9) g/dL Albumin 4.5 (3.5-5.7) g/dL Globulin 3.0 (2.4-3.5) g/dL Albumin/Globulin Ratio 1.5 (1.1-2.2) Lipase 22 (11-82) Units/L Urine Color (Yellow) Urine Clarity (Clear) Urine pH (5.0-8.0) pH Units Ur Specific [place] (1.010-1.025) Urine Protein (Neg-Trace) mg/dL Urine Glucose (UA) (Normal) mg/dL Urine Ketones (Negative) mg/dL Urine Blood (Negative) Urine Nitrite (Negative) Urine Bilirubin (Negative) Urine Urobilinogen (Normal) mg/dL Ur Leukocyte Esterase (Negative) Urine Microscopic RBC (0-3) per hpf Urine Microscopic WBC (0-3) per hpf Ur Squamous Epith Cells (None-Few) per lpf Urine Bacteria (None-Few) per hpf Hyaline Casts (None-Few) per lpf Ur Culture Indicated? (NO) 09/28/17 Range/Units 07:46 WBC (4.3-11.1) K/mcL RBC (3.82-4.97) M/mcL Hgb (11.5-15.4) g/dL Hct (35.3-44.9) % MCV (83.0-100.0) fL MCH (28.0-33.3) pg MCHC (31.6-35.5) g/dL RDW (11.5-14.5) % Plt Count (140-400) K/mcL MPV (9.4-12.4) fL Immature Gran % (0-4) % Seg Neutrophils % % Lymphocytes % % Monocytes % % Eosinophils % % Basophils % % Neutrophils # (1.6-8.9) K/mcL Lymphocytes # (0.6-4.6) K/mcL Monocytes # (0.0-1.3) K/mcL Eosinophils # (0.0-0.6) K/mcL Basophils # (0.0-0.2) K/mcL D-Dimer (0-500) ng/mLFEU Sodium (136-145) mEq/L Potassium (3.5-5.1) mEq/L Chloride (98-107) mEq/L Carbon Dioxide (23-29) mEq/L BUN (8-23) mg/dL Creatinine (0.60-1.20) mg/dL Est GFR ( Amer) (> 60) Est GFR (Non-Af Amer) (> 60) BUN/Creatinine Ratio (6-26) Glucose (70-105) mg/dL Calculated Osmolality (280-300) Calcium (8.6-10.3) mg/dL Total Bilirubin (0.3-1.0) mg/dL AST (13-39) Units/L ALT (7-52) Units/L Alkaline Phosphatase (34-104) Units/L Troponin I (< 0.04) ng/mL Serum Total Protein (6.4-8.9) g/dL Albumin (3.5-5.7) g/dL Globulin (2.4-3.5) g/dL Albumin/Globulin Ratio (1.1-2.2) Lipase (11-82) Units/L Urine Color Dark Yellow (Yellow) Urine Clarity Cloudy A (Clear) Urine pH 6.5 (5.0-8.0) pH Units Ur Specific [place] 1.023 (1.010-1.025) Urine Protein 30 H (Neg-Trace) mg/dL Urine Glucose (UA) Normal (Normal) mg/dL Urine Ketones Trace H (Negative) mg/dL Urine Blood Negative (Negative) Urine Nitrite Negative (Negative) Urine Bilirubin Small H (Negative) Urine Urobilinogen Normal (Normal) mg/dL Ur Leukocyte Esterase Negative (Negative) Urine Microscopic RBC 0-3 (0-3) per hpf Urine Microscopic WBC 0-3 (0-3) per hpf Ur Squamous Epith Cells Many H (None-Few) per lpf Urine Bacteria None Seen (None-Few) per hpf Hyaline Casts Few (None-Few) per lpf Ur Culture Indicated? NO (NO) Attestation Statement - Attestation Attestation: I, Erasto Gaffney DO have provided [id number] time during the care of this patient. Detailed review the presentation, symptoms, medical history were discussed and reviewed with the mid-level provider Kun Castillo PA-C/HANDLE ASSEMBLER. Medical intervention labs and imaging studies were reviewed in detail. See full documentation of physical exam and course of care in the mid-level provider's note. I agree with the determined course of care, medical intervention and disposition put forth by the mid-level provider. See below documentation for changes or alterations in documentation. 62-year-old female presents to the emergency room for evaluation of nausea and vomiting. She has had these symptoms since Wednesday night. Patient has 4 grandchildren in the home have had issues with nausea and vomiting. The grandmother is concerned because previously in the past she has had a heart- related issue with nausea and vomiting. It was different the last time when she had these issues. Patient is denying chest pain shortness of breath headache vision changes diarrhea. She denies any fevers or chills. Denies any trauma or injury or new medication at this time. Patient is resting in the bed on my physical exam. Head is atraumatic pupils are equal round reactive oropharynx is patent trachea is midline mucous membranes are slightly dry. Lungs are clear to auscultation heart is regular. Abdomen is soft nontender nondistended with no guarding no rigidity no peritoneal symptoms. There is no palpable loops of bowel on examination. Patient typically has 3-4 days between bowel movements and has not had a bowel movement since prior to Wednesday. Patient denies any pain with attempts at defecation. She does not have a known vaginal bleeding or burning with urination at this time. Extremities appear to be symmetric with no swelling or deviation this point. Labs including CBC chemistry troponin and d-dimer ordered by the mid-level provider prior to my evaluation. Chest x-ray was completed. Patient has what appears to the most likely be a viral syndrome at this point considering the context the presentation the symptoms. D-dimer was elevated on lab review at this time. Patient will have CT angiography the chest and CT with oral and IV contrast of the abdomen completed at this time. Patient otherwise currently stable. Fluids will be provided for symptomatically control as well as nausea medication. EKG appeared to be stable. With no acute morphology changes at this time. Patient is a chronic issue secondary to the CABG that was completed in the past. Patient is otherwise clinically stable disposition pending the full workup and treatment course. See detailed documentation of the physical exam, medical intervention, medical decision-making and disposition of the mid- level provider's note. 1115 Patient is still had persistence nausea and vomiting even with 2 doses of different anti-the medic medication. CT imaging of the chest and abdomen are unremarkable for obstruction or pulmonary emboli. Patient will have repeat dose of medication is unresponsive and the nausea still persistent the patient will be admitted for intractable nausea. 1230 Patient has intractable nausea vomiting that has not been control medications here. Admission process will be completed
[2017-09-28] MEDS ORDERED: *HR* Promethazine 25 MG/ML VIAL IVP ONE (08:45)
[2017-09-28 09:20] LABS: Troponin I < 0.03 ng/mL (< 0.04)
[2017-09-28] MEDS ORDERED: Metoclopramide 10 MG/2 ML VIAL IVP ONE (10:48)
[2017-09-28] MEDS ORDERED: Naloxone 0.4 MG/ML INJ IVP PRN (13:17)
[2017-09-28] MEDS ORDERED: Acetaminophen 325 MG TABLET PO PRN (13:17)
[2017-09-28] MEDS ORDERED: SUMAtriptan succinate 50 MG TABLET PO PRN (13:23)
[2017-09-28] MEDS: *HR* Heparin 5,000 UNIT/ML VIAL SQ SCH ×2 (13:50→21:18)
[2017-09-28] MEDS: Pantoprazole 40 MG VIAL IVP SCH (13:50)
[2017-09-28] MEDS: 0.9 % Sodium Chloride 1,000 ML IVC SCH (13:50)
--- NOTE | 2017-09-28 13:56 | Internal Med History&Physical ---
<LuhWilver Peraza - Last Filed: 09/28/17 14:28> Date of Encounter: 09/28/17 Time of Encounter: 13:15 Internal Medicine - H&P: HPI Chief complaint: Nausea/Vomiting Admitted From: Emergency Dept Plans for Post Hospital Care: Home History of present illness: Ms. 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 Pt. reports diaphoresis w/sx but denies fever, chills, or diarrhea. States that has never happened before. Reports grandson was sick contact. No alleviating or aggravating factors. Denies bloody emesis or hx of GERD. Reports associated abdominal pain and weakness but denies body aches, chest pain, headache, changes in vision, unusual bleeding, fever, chills, diarrhea, constipation, numbness, tingling, dizziness, lightheadedness, presyncope, or syncope. Past Med Surg Social Fam HX - Past Medical History Source: patient Medical history: coronary artery disease, migraine, myocardial infarction ( December 2016 w/quadruple bypass) Psychiatric history: no psych history - Past Surgical History Surgical History: , other (Tonsillectomy and adenoidectomy) - Social History Smoking Status: Current every day smoker Packs per day: 1 PPD Smokeless Tobacco Status: No Alcohol use: none Drug use: none Current living situation: Home Activity Level: Independent ambulation Recent Out of Country Travel Within the Last 8 Weeks: No Exposure or Possible Exposure to Illness During Travel: No - Family History Father Race: Family Member Ethnicity: Non- Living Status: Age at : 77 Cause of : CVA Hx Family Cardiac Disorders: Yes (CAD, CVA) Hx Family Neurologic Disorders: Yes (CVA) Mother Race: Family Member Ethnicity: Non- Living Status: Age at : 76 Cause of : Unknown Brother Race: Family Member Ethnicity: Non- Living Status: Still Living Hx Family Cardiac Disorders: Yes (Quadruple bypass) Hx Family Endocrine Disorder: Yes (DM) Sister Race: Family Member Ethnicity: Non- Living Status: Age at : 50 Cause of : Cervical cancer Hx Family Cancer: Yes (Cervical) Internal Medicine - H&P: Meds Amitriptyline [Elavil] 20 mg PO HS 12/09/16 [History] Propranolol HCl [Inderal LA] 120 mg PO DAILY 12/09/16 [History] SUMAtriptan succinate [Imitrex] 50 mg PO DAILY PRN 12/09/16 [History] Aspirin Enteric Coated [Aspirin EC] 81 mg PO DAILY 12/22/16 [Rx] Atorvastatin [Lipitor] 80 mg PO HS #30 tab 12/22/16 [Rx] Nitroglycerin 0.4 mg SL Q5MIN PRN #20 12/22/16 [Rx] 3 Allergy/AdvReac Type Severity Reaction Status Date / Time codeine Allergy Nausea Verified 08/21/16 14:35 nitroglycerin AdvReac Unresponsiv Verified 12/14/16 06:48 e All Systems PM: A 10-system review of systems was performed and is negative for pertinent findings except as documented above in the HPI. - Constitutional Constitutional: as per HPI, weakness, no chills, no fever(s), no night sweats - EENT Eyes: no change in vision, no discharge, no pain, no photophobia Ears: no ear discharge, no ear pain, no tinnitus Nose, mouth and throat: no dysphagia, no nasal discharge, no neck pain, no sore throat - Breasts Breasts: as per HPI - Cardiovascular Cardiovascular ROS IM: no chest pain, no diaphoresis, no dyspnea, no lightheadedness, no palpitations, no syncope - Respiratory Respiratory: no cough, no dyspnea, no wheezing, no excessive phlegm production - Gastrointestinal Gastrointestinal: as per HPI, abdominal pain, nausea, vomiting, no diarrhea, no hematemesis, no hematochezia, no melena - Genitourinary Genitourinary: no change in urinary stream, no dysuria, no flank pain, no hematuria Menstruation: as per HPI - Musculoskeletal Musculoskeletal ROS IM: no numbness, no tingling - Integumentary Integumentary IM: no rash, no unusual bruising - Neurological Neurological ROS: no confusion, no convulsions, no focal weakness, no numbness, no tingling, no tremor(s) - Psychiatric Psychiatric: as per HPI - Endocrine Endocrine IM: as per HPI - Hematologic/Lymphatic Hematologic/Lymphatic: no easy bruising - Allergic/Immunologic Allergic/Immunologic: as per HPI - Constitutional Vitals: Temp Pulse Resp BP Pulse Ox 99.2 F 87 18 142/85 96 09/28/17 13:04 09/28/17 13:04 09/28/17 13:04 09/28/17 13:04 09/28/17 13:04 General appearance: Present: cooperative, mild distress (N/V), A&O X 3, pleasant , answers questions appropriately - Head Head exam: Present: atraumatic, normocephalic - Eye Eye exam: Present: PERRL, conjuntiva pink, sclera anicteric Pupils: Present: PERRL - ENT ENT exam: Present: normal exam - Neck Neck exam general surgery: Present: normal inspection, supple, trachea midline. Absent: lymphadenopathy - Respiratory Respiratory exam: Present: CTAB. Absent: accessory muscle use, rales, rhonchi, wheezes - Cardiovascular Cardiovascular exam: Present: RRR, +S1, +S2. Absent: diastolic murmur, gallop, rubs, systolic murmur - GI/Abdominal GI/Abdominal exam: Present: normal bowel sounds, soft, no peritoneal signs. Absent: distended, tenderness - Rectal Rectal exam: Present: deferred - Additional comments: exam deferred. - Extremities Exam Extremities exam: Present: warm, radial pulses palpable and symmetrical. Absent : calf tenderness, cyanotic, pedal edema - Back Exam Back exam: Present: normal inspection - Neurological Exam Neurological exam: Present: alert, CN II-XII intact, oriented X3, no focal deficits. Absent: pronater drift, facial droop, speech deficit - Psychiatric Psychiatric exam: Present: flat affect - Skin Skin exam: Present: dry, intact Internal Med - H&P Results - Labs CBC & Chem 7: 09/28/17 07:38 09/28/17 07:38 - Diagnostic Studies Chest x-ray Additional comments: Impressions Chest X-Ray 09/28/17 07:07 IMPRESSION: No acute process. D/ / Shamir Maurer MD / Shamir Maurer MD Interpreting Provider: Shamir Maurer MD CT scan - abdomen Additional comments: Impressions Abdomen/Pelvis CT 09/28/17 10:15 IMPRESSION: 1. No evidence for acute pulmonary embolism. 2. No evidence for pneumonia. 3. A 7 mm anterior segment right upper lobe nodule adjacent to the anterior junction line. Follow-up CT in 6-12 months recommended. 4. No acute infective or inflammatory process in the abdomen and pelvis. 5. No evidence for bowel obstruction. RECOMMENDATIONS: Fleischner Society guidelines for follow-up and management of incidentally detected pulmonary nodules: Single Solid Nodule: Nodule size equals 6-8 mm In a low-risk patient, CT at 6-12 months, then consider CT at 18-24 months. In a high-risk patient, CT at 6-12 months, then CT at 18-24 months. - Low risk patients include individuals with minimal or absent history of smoking and other known risk factors. - High risk patients include individuals with a history or smoking or known risk factors. Radiology 2017 http://pubs.rsna.org/doi/full/10.1148/radiol.[email or web address] D/ / 09/28/2017 10:35:14 Broderick Wu MD / enrique Interpreting Provider: Broderick Wu MD CT scan - chest Additional comments: Impressions Chest CTA 09/28/17 10:15 IMPRESSION: 1. No evidence for acute pulmonary embolism. 2. No evidence for pneumonia. 3. A 7 mm anterior segment right upper lobe nodule adjacent to the anterior junction line. Follow-up CT in 6-12 months recommended. 4. No acute infective or inflammatory process in the abdomen and pelvis. 5. No evidence for bowel obstruction. RECOMMENDATIONS: Fleischner Society guidelines for follow-up and management of incidentally detected pulmonary nodules: Single Solid Nodule: Nodule size equals 6-8 mm In a low-risk patient, CT at 6-12 months, then consider CT at 18-24 months. In a high-risk patient, CT at 6-12 months, then CT at 18-24 months. - Low risk patients include individuals with minimal or absent history of smoking and other known risk factors. - High risk patients include individuals with a history or smoking or known risk factors. Radiology 2017 http://pubs.rsna.org/doi/full/10.1148/radiol.[email or web address] D/ / 09/28/2017 10:35:14 Broderick Wu MD / [facility] Interpreting Provider: Broderick Wu MD - Assessment and plan (1) Intractable nausea and vomiting Current Visit: Yes Status: Acute Assessment and plan: Acute intractable N/V since Wednesday. Patient reports being unable to keep any food or liquid down. Reports grandson is sick contact. Differential dx includes viral GI infection and/or possible influenza. IVP Zofran and Phenergan ordered to control N/V. Monitor I&O and f/u labs. Rapid influenza A&B. NPO for now except ice chips and medications. Will advance diet as tolerated. Discussed pt. w/Dr. Sánchez who agrees w/plan of care. Pt. is low risk for further morbidity d/ t current N/V and dehydration. Observation. Qualifiers: Vomiting type: unspecified Qualified Code(s): R11.2 - Nausea with vomiting , unspecified (2) Dehydration Current Visit: Yes Status: Acute Assessment and plan: Acute dehydration as a result of N/V since Wednesday. Pt. received 1L IV bolus in ED to be followed by 75 mL/HR. Monitor f/u labs. (3) Abdominal pain Current Visit: Yes Status: Acute Assessment and plan: Acute abdominal pain associated w/N/V. IVP Phenergan 12.5 mg Q6HR PRN for N/V. IVP Zofran ordered if Phenergan not effective. IVP Protonix 40 mg daily. PO Tylenol 650 mg Q6HR PRN for pain. Monitor I&O. Qualifiers: Abdominal location: generalized Qualified Code(s): R10.84 - Generalized abdominal pain (4) CAD (coronary artery disease) Current Visit: Yes Status: Chronic Assessment and plan: Hx of chronic CAD and quadruple bypass in December 2016 following an VT. Continue pts. Lipitor, Inderal, and aspirin therapy. Qualifiers: Coronary Disease-Associated Artery/Lesion type: unspecified vessel or lesion type [place] vs. transplanted heart: j[place] heart Associated angina: angina presence unspecified Qualified Code(s): I25.10 - Atherosclerotic heart disease of [place] coronary artery without angina pectoris (5) Migraine Current Visit: Yes Status: Chronic Assessment and plan: Hx of chronic migraines. Continue pts. Imitrex and Inderal. Qualifiers: Migraine type: unspecified Status migrainosus presence: without status migrainosus Intractability: not intractable Qualified Code(s): G43.909 - Migraine, unspecified, not intractable, without status migrainosus (6) DVT prophylaxis Current Visit: Yes Status: Acute Assessment and plan: Heparin 5,000 units SQ Q8HR for DVT prophylaxis. Monitor pt. for signs of bleeding. (7) Elevated d-dimer Current Visit: Yes Status: Acute Assessment and plan: Acutely elevated d-dimer of 789. CTA of chest negative for PE. Denies hx of PE/ DVTs. Bilateral Dopplers of LEs ordered. - Time Spent With Patient Total time spent is greater than 50% in coordination of care (as documented) at patient's floor/unit and/or counseling patient: <PrincessSarah - Last Filed: 09/28/17 16:27> Date of Encounter: 09/28/17 Internal Medicine - H&P: HPI History of present illness: Ms. Vogel is a 62 year old female All Systems PM: A 10-system review of systems was performed and is negative for pertinent findings except as documented above in the HPI. - Constitutional Vitals: Temp Pulse Resp BP Pulse Ox 97.8 F 86 18 115/65 93 09/28/17 16:17 09/28/17 16:17 09/28/17 16:17 09/28/17 16:17 09/28/17 16:17 Internal Med - H&P Results - Labs CBC & Chem 7: 09/28/17 07:38 09/28/17 07:38 - Attending Attestation Patient independently seen and examined at bedside. Pt admitted for intractable nausea and vomiting of unclear etiology. Given clinical presentation, appears to be of viral etiology continue supportive care with IV fluids, anti-emetics, clear liquid diet and advance as tolerated case discussed with NILESH Arvizu, I agree with his documented findings , assessment,and plan except as listed above - Assessment and plan (1) Intractable nausea and vomiting Current Visit: Yes Status: Acute Qualifiers: Vomiting type: unspecified Qualified Code(s): R11.2 - Nausea with vomiting , unspecified (2) Dehydration Current Visit: Yes Status: Acute (3) Abdominal pain Current Visit: Yes Status: Acute Qualifiers: Abdominal location: generalized Qualified Code(s): R10.84 - Generalized abdominal pain (4) DVT prophylaxis Current Visit: Yes Status: Acute (5) CAD (coronary artery disease) Current Visit: Yes Status: Chronic Qualifiers: Coronary Disease-Associated Artery/Lesion type: unspecified vessel or lesion type [place] vs. transplanted heart: [place] heart Associated angina: angina presence unspecified Qualified Code(s): I25.10 - Atherosclerotic heart disease of [place] coronary artery without angina pectoris (6) Migraine Current Visit: Yes Status: Chronic Qualifiers: Migraine type: unspecified Status migrainosus presence: without status migrainosus Intractability: not intractable Qualified Code(s): G43.909 - Migraine, unspecified, not intractable, without status migrainosus (7) Elevated d-dimer Current Visit: Yes Status: Acute - Time Spent With Patient Total time spent is greater than 50% in coordination of care (as documented) at patient's floor/unit and/or counseling patient:
[2017-09-28] MEDS: Ondansetron 4 MG/2 ML VIAL IVP PRN (16:04)
[2017-09-28] MEDS: *HR* Promethazine 25 MG/ML VIAL IVP PRN (21:21)
[2017-09-29] MEDS: 0.9 % Sodium Chloride 1,000 ML IVC SCH (03:35)
[2017-09-29 05:28] LABS: Basophils % 0.2 %; Eosinophils # 0.1 K/mcL (0.0-0.6); Eosinophils % 0.5 %; Hematocrit 38.6 % (35.3-44.9); Immature Granulocytes % 0.3 % (0-4); Lymphocytes # 1.9 K/mcL (0.6-4.6); Lymphocytes % 18.2 %; Mean Corpuscular HGB Conc 33.2 g/dL (31.6-35.5); Mean Corpuscular Volume 90.4 fL (83.0-100.0); Mean Platelet Volume 10.8 fL (9.4-12.4); Monocytes # 0.7 K/mcL (0.0-1.3); Monocytes % 6.7 %; Neutrophils # 7.6 K/mcL (1.6-8.9); Platelet Count 192 K/mcL (140-400); Red Blood Count 4.27 M/mcL (3.82-4.97); Red Cell Distribution Width 13.4 % (11.5-14.5); Segmented Neutrophils % 74.1 %
[2017-09-29 05:38] LABS: Hemoglobin 12.8 g/dL (11.5-15.4)
[2017-09-29 05:45] LABS: Alanine Aminotransferase 9 Units/L (7-52); Albumin 3.6 g/dL (3.5-5.7); Albumin/Globulin Ratio 1.5 (1.1-2.2); Alkaline Phosphatase 90 Units/L (34-104); Aspartate Amino Transferase 12 Units/L (13-39); BUN/Creatinine Ratio 23 (6-26); Bilirubin,Total 0.7 mg/dL (0.3-1.0); Blood Urea Nitrogen 13 mg/dL (8-23); Calcium 8.7 mg/dL (8.6-10.3); Carbon Dioxide 27 mEq/L (23-29); Chloride 109 mEq/L (98-107); Cholesterol 117 mg/dL (< 200); Globulin 2.4 g/dL (2.4-3.5); Glucose 93 mg/dL (70-105); HDL Cholesterol 29 mg/dL (40-59); LDL Cholesterol,Calculated 66 mg/dL (0-99); Osmolality,Calculated 296 (280-300); Potassium 3.1 mEq/L (3.5-5.1); Sodium 143 mEq/L (136-145); Triglycerides 110 mg/dL (< 150); eGFR For African Americans > 60 (> 60); eGFR For Non-African Americans > 60 (> 60)
[2017-09-29] MEDS: Ondansetron 4 MG/2 ML VIAL IVP PRN (06:13)
[2017-09-29] MEDS: *HR* Heparin 5,000 UNIT/ML VIAL SQ SCH ×3 (06:16→21:00)
[2017-09-29] MEDS: Propranolol LA (24 HR) 60 MG CAP.SA.24H PO SCH (07:21)
[2017-09-29] MEDS: Aspirin Enteric Coated 81 MG Tablet PO SCH (07:21)
[2017-09-29] MEDS: Pantoprazole 40 MG VIAL IVP SCH (07:21)
[2017-09-29 08:44] LABS: Estimated Average Glucose 134 mg/dl; Hemoglobin A1C 6.3 %
--- NOTE | 2017-09-29 12:25 | Internal Med Progress Note ---
Date of Encounter: 09/29/17 Time of Encounter: 12:15 - Assessment and plan (1) Intractable nausea and vomiting Current Visit: Yes Status: Acute Assessment and plan: Patient states that she is improving, nausea remains, however she has had no emesis for a few hours. She is able to tolerate 7-Up and apple juice. She reports that she is hungry and we will advance her diet to full liquids for lunch. CT abdomen is negative for acute process in the abdomen. Abdomen is soft, bowel sounds heard. Abdomen is tender to palpation she states it is sore from vomiting. Patient denies diarrhea. Mild hypokalemia, potassium 3.1. Will supplement with by mouth supplements. Continue IV fluid hydration, continue to monitor labs and vital signs. Will reassess for discharge tomorrow. Qualifiers: Vomiting type: unspecified Qualified Code(s): R11.2 - Nausea with vomiting , unspecified (2) Dehydration Current Visit: Yes Status: Acute Assessment and plan: Secondary to nausea and vomiting for 3 days. Continue gentle IV fluid hydration at 75 miles per hour. Patient is just now starting to be able to tolerate by mouth liquids without vomiting. Advance diet as tolerated. Continue monitor vitals and labs. (3) Abdominal pain Current Visit: Yes Status: Acute Assessment and plan: Patient reports abdominal tenderness with palpation secondary to vomiting. She denies abdominal pain. CT abdomen is negative. Continue IV Protonix 40 mg daily. Plan as above. Qualifiers: Abdominal location: generalized Qualified Code(s): R10.84 - Generalized abdominal pain (4) CAD (coronary artery disease) Current Visit: Yes Status: Chronic Assessment and plan: Chronic. CABG in December,. Continue telemetry Continue aspirin, statin, beta tigre. Qualifiers: Coronary Disease-Associated Artery/Lesion type: unspecified vessel or lesion type [place] vs. transplanted heart: [place] heart Associated angina: angina presence unspecified Qualified Code(s): I25.10 - Atherosclerotic heart disease of [place] coronary artery without angina pectoris (5) Migraine Current Visit: Yes Status: Chronic Assessment and plan: Chronic. Continue home medications. Qualifiers: Migraine type: unspecified Status migrainosus presence: without status migrainosus Intractability: not intractable Qualified Code(s): G43.909 - Migraine, unspecified, not intractable, without status migrainosus (6) Elevated d-dimer Current Visit: Yes Status: Acute Assessment and plan: Elevated d-dimer on arrival. CTA chest negative for PE. Bilateral lower extremity Dopplers are negative for deep and superficial venous thromboses. (7) DVT prophylaxis Current Visit: Yes Status: Acute Assessment and plan: Heparin subcutaneous 3 times a day. Encourage ambulation. (8) Pulmonary nodule Current Visit: Yes Status: Acute Assessment and plan: Patient with 7 cm pulmonary nodule in right upper lobe. Recommended follow-up CT in 6-12 months. Patient is aware, questions answered. Verbalized understanding. - Time Spent With Patient Total time spent is greater than 50% in coordination of care (as documented) at patient's floor/unit and/or counseling patient: less than 15 minutes - Subjective Interval history: Patient was seen and assessed the bedside at 12:15 PM. Patient reports that she is feeling somewhat better and is now hungry. She states that she is able to hold down 7-Up, apple juice without vomiting, remains nauseated. She denies any diarrhea. She denies abdominal pain. She has been made aware of pulmonary nodule and need for follow-up in 6-12 months. States that she will follow with her primary care provider. She denies any headache, blurred vision, dizziness, peripheral edema, or chest pain. No shortness of breath. - Constitutional Vitals: Temp Pulse Resp BP Pulse Ox 98.3 F 61 17 128/75 96 09/29/17 10:32 09/29/17 10:32 09/29/17 10:32 09/29/17 10:32 09/29/17 10:32 General appearance: Present: cooperative, mild distress (N/V), A&O X 3, pleasant , no acute distress, answers questions appropriately - Head Head exam: Present: atraumatic, normal inspection, normocephalic - Eye Eye exam: Present: normal appearance, conjuntiva pink, sclera anicteric - Neck Neck exam general surgery: Present: supple, trachea midline. Absent: lymphadenopathy, tenderness - Respiratory Respiratory exam: Present: CTAB. Absent: accessory muscle use, chest wall tenderness, decreased breath sounds, rales, respiratory distress, rhonchi, wheezes - Cardiovascular Cardiovascular exam: Present: RRR, +S1, +S2. Absent: diastolic murmur, gallop, rubs, systolic murmur - GI/Abdominal GI/Abdominal exam: Present: normal bowel sounds, soft. Absent: distended, hepatomegaly, tenderness - Extremities Exam Extremities exam: Present: normal capillary refill, normal inspection, warm, radial pulses palpable and symmetrical. Absent: calf tenderness, cyanotic, pedal edema, tenderness - Neurological Exam Neurological exam: Present: alert, oriented X3, no focal deficits. Absent: facial droop, speech deficit - Skin Skin exam: Present: dry, intact, normal color, warm. Absent: rash Internal Medicine: Result - Labs CBC & Chem 7: 09/29/17 03:58 09/29/17 03:58 Labs: Short CBC 09/29/17 Range/Units 03:58 WBC 10.2 (4.3-11.1) K/mcL Hgb 12.8 D (11.5-15.4) g/dL Hct 38.6 (35.3-44.9) % Plt Count 192 (140-400) K/mcL Neutrophils # 7.6 (1.6-8.9) K/mcL BMP 09/29/17 03:58 Sodium 143 Potassium 3.1 L Chloride 109 H Carbon Dioxide 27 BUN 13 Creatinine 0.57 L Glucose 93 Calcium 8.7 Liver Function 09/29/17 Range/Units 03:58 Total Bilirubin 0.7 (0.3-1.0) mg/dL AST 12 L (13-39) Units/L ALT 9 (7-52) Units/L Alkaline Phosphatase 90 (34-104) Units/L Albumin 3.6 (3.5-5.7) g/dL - ABG Interpretation ABG results: PT/INR, D-dimer D-Dimer 789 ng/mLFEU (0-500) H 09/28/17 07:38 Consult Discharge Plan - Plan Referrals: Broderick Durán DO [Primary Care Provider] -
[2017-09-29] MEDS: *HR* Promethazine 25 MG/ML VIAL IVP PRN (14:36)
--- NOTE | 2017-09-29 20:19 | Electrocardiograph Report ---
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
[2017-09-30] MEDS: *HR* Heparin 5,000 UNIT/ML VIAL SQ SCH ×2 (05:19→14:12)
[2017-09-30] MEDS: 0.9 % Sodium Chloride 1,000 ML IVC SCH (05:27)
[2017-09-30 07:57] LABS: Basophils % 0.4 %; Eosinophils # 0.1 K/mcL (0.0-0.6); Eosinophils % 0.7 %; Hemoglobin 13.1 g/dL (11.5-15.4); Immature Granulocytes % 0.3 % (0-4); Lymphocytes # 1.5 K/mcL (0.6-4.6); Lymphocytes % 18.9 %; Mean Corpuscular HGB Conc 34.5 g/dL (31.6-35.5); Mean Corpuscular Hemoglobin 30.8 pg (28.0-33.3); Mean Corpuscular Volume 89.2 fL (83.0-100.0); Monocytes # 0.5 K/mcL (0.0-1.3); Monocytes % 6.4 %; Neutrophils # 5.6 K/mcL (1.6-8.9); Platelet Count 187 K/mcL (140-400); Red Blood Count 4.26 M/mcL (3.82-4.97); Red Cell Distribution Width 13.2 % (11.5-14.5); Segmented Neutrophils % 73.3 %
[2017-09-30] MEDS: Propranolol LA (24 HR) 60 MG CAP.SA.24H PO SCH (08:31)
[2017-09-30] MEDS: Aspirin Enteric Coated 81 MG Tablet PO SCH (08:31)
[2017-09-30] MEDS: Pantoprazole 40 MG VIAL IVP SCH (08:31)
[2017-09-30 10:01] LABS: Alanine Aminotransferase 9 Units/L (7-52); Albumin 3.8 g/dL (3.5-5.7); Albumin/Globulin Ratio 1.7 (1.1-2.2); Alkaline Phosphatase 95 Units/L (34-104); Aspartate Amino Transferase 12 Units/L (13-39); BUN/Creatinine Ratio 21 (6-26); Blood Urea Nitrogen 12 mg/dL (8-23); Calcium 8.7 mg/dL (8.6-10.3); Carbon Dioxide 23 mEq/L (23-29); Chloride 107 mEq/L (98-107); Globulin 2.3 g/dL (2.4-3.5); Glucose 107 mg/dL (70-105); Osmolality,Calculated 286 (280-300); Potassium 3.6 mEq/L (3.5-5.1); Sodium 138 mEq/L (136-145); Total Protein 6.1 g/dL (6.4-8.9); eGFR For African Americans > 60 (> 60); eGFR For Non-African Americans > 60 (> 60)
[2017-09-30 15:13] VITALS: BP 138/75
--- NOTE | 2017-09-30 16:59 | Discharge Summary ---
- NOTES TO OUTPATIENT PROVIDER Notes to Outpatient Provider: Pt was admitted for several day history of N/V. Labs remained stable throughout, vitals stable. Pt received IVF hydration, antiemetics. Vomiting slowed in frequency to about twice daily and pt will be discharged. Unclear etiology of n/v. Incidental finding of pulmonary nodule, repeat CT in 6-12 months due to high risk: smoker. A1c 6.3%. Pt is aware, could benefit from transfer car operator drier. Orders not resulted at time of discharge: Pending orders 10/01/17 04:00 Complete Blood Count [HEME] AM 0400 [place] [address]/02/17 04:00 Complete Blood Count [HEME] AM 0400 Comprehensive Metabolic Panel AM 040 Date of Encounter: 09/30/17 Time of Encounter: 12:30 - Discharge Diagnosis (1) Intractable nausea and vomiting Priority: Primary Status: Acute Assessment and Plan: Unclear etiology. Labs and vitals stable. Abd CT negative. Frequency decreased, pt reports emesis about 2x/day now, no diarrhea. Abd tender due to vomiting. Pt is able to tolerated full liquid diet, soft diet. Pt will be sent home with antiemetic and will follow up with PCP. Qualifiers: Vomiting type: unspecified Qualified Code(s): R11.2 - Nausea with vomiting , unspecified (2) Dehydration Priority: Secondary Status: Resolved Assessment and Plan: Labs and vital stable and within normal limits. Incidence of vomiting is decreased to 2 per day. Patient will go home with antiemetics. Mucous membranes are moist and pink. (3) Abdominal pain Priority: Secondary Status: Acute Assessment and Plan: Patient reports abdominal tenderness with palpation secondary to vomiting. CT abdomen is negative. Omeprazole 20 mg daily and anti-medic for home. Qualifiers: Abdominal location: generalized Qualified Code(s): R10.84 - Generalized abdominal pain (4) CAD (coronary artery disease) Priority: Secondary Status: Chronic Assessment and Plan: Chronic. CABG in December,. Patient denies chest pain. Continue aspirin, statin, beta tigre. Qualifiers: Coronary Disease-Associated Artery/Lesion type: unspecified vessel or lesion type [place] vs. transplanted heart: [place] heart Associated angina: angina presence unspecified Qualified Code(s): I25.10 - Atherosclerotic heart disease of [place] coronary artery without angina pectoris (5) Migraine Priority: Secondary Status: Chronic Assessment and Plan: Chronic, per patient history. Continue home medications. Qualifiers: Migraine type: unspecified Status migrainosus presence: without status migrainosus Intractability: not intractable Qualified Code(s): G43.909 - Migraine, unspecified, not intractable, without status migrainosus (6) Elevated d-dimer Priority: Secondary Status: Acute Assessment and Plan: CTA chest negative for PE. Bilateral lower extremity Dopplers are negative for deep and superficial venous thromboses. (7) DVT prophylaxis Priority: Secondary Status: Acute Assessment and Plan: Heparin (8) Pulmonary nodule Priority: Secondary Status: Acute Assessment and Plan: Patient with 7 cm pulmonary nodule in right upper lobe. Recommended follow-up CT in 6-12 months. (9) Prediabetes Priority: Secondary Status: Acute Assessment and Plan: A1c 6.3%. Pt would benefit from visit to transfer car operator drier for diet planning. Also recommended ADA website. Discussed lifestyle modifications including diet and exercise, she verbalized understanding. Hospital course: Ms. Vogel is a 62 year old female with past medical history of CABG, [place], nicotine dependence, CAD, migraines. Patient was admitted for intractable nausea and vomiting, sick contact is her grandson. Same thing. She has labs and vitals stable throughout visit. Potassium replaced on day 1. Vomiting is improved. She is able to hold down a regular diet and fluids. She will be sent home with prescription for omeprazole 20 mg daily and ondansetron 4 mg ODT every 6 hours as needed for nausea. Patient has incidental finding of a 7 mm pulmonary nodule in right upper lobe, CT recommended follow-up in 6-12 months. Patient reports that she is still smoking, states that she is not needing nicotine replacement therapy for home. A1c also mildly elevated at 6.3, patient denied discussed her prediabetes status and need for diet control and exercise. Patient could benefit from evaluation by transfer car operator drier. Patient is stable and appropriate for discharge. Discharge discussed with: patient - Time Spent with Patient Total time spent providing and/or coordinating discharge services: Less than 30 minutes - Discharge Medications Prescriptions: Omeprazole 20 mg PO DAILY #20 tablet. Ondansetron ODT [Zofran ODT] 4 mg PO Q4H #24 tab.rapdis Home Medications: Amitriptyline [Elavil] 20 mg PO HS 12/09/16 [History] Propranolol HCl [Inderal LA] 120 mg PO DAILY 12/09/16 [History] SUMAtriptan succinate [Imitrex] 50 mg PO DAILY PRN 12/09/16 [History] Aspirin Enteric Coated [Aspirin EC] 81 mg PO DAILY 12/22/16 [Rx] Atorvastatin [Lipitor] 80 mg PO HS #30 tab 12/22/16 [Rx] Nitroglycerin 0.4 mg SL Q5MIN PRN #20 12/22/16 [Rx] Omeprazole 20 mg PO DAILY #20 tablet. 09/30/17 [Rx] Ondansetron ODT [Zofran ODT] 4 mg PO Q4H #24 tab.rapdis 09/30/17 [Rx] Allergies/Adverse Reactions: 3 Allergy/AdvReac Type Severity Reaction Status Date / Time codeine Allergy Nausea Verified 08/21/16 14:35 nitroglycerin AdvReac Unresponsiv Verified 12/14/16 06:48 e Date of admission: 09/28/17 12:11 Primary care physician: Broderick Coello Colopy Consults: 09/28/17 13:19 Consult to Equipment Maintenance Supervisor [CONS] Routine Reason for SW Consult: Please assess patient for possible home needs for post -discharge planning. Discharging clinician: Khadijah Bagley Anticipated date of discharge: 09/30/17 - Constitutional Vitals: Temp Pulse Resp BP Pulse Ox 98.6 F 64 16 138/75 95 09/30/17 15:12 09/30/17 15:12 09/30/17 15:12 09/30/17 15:12 09/30/17 15:12 General appearance: Present: cooperative, mild distress (N/V), A&O X 3, pleasant , no acute distress, answers questions appropriately - Head Head exam: Present: atraumatic, normal inspection, normocephalic - Eye Eye exam: Present: normal appearance, conjuntiva pink, sclera anicteric - Neck Neck exam general surgery: Present: supple, trachea midline. Absent: lymphadenopathy, tenderness - Respiratory Respiratory exam: Present: CTAB. Absent: accessory muscle use, rales, rhonchi, wheezes - Cardiovascular Cardiovascular exam: Present: RRR, +S1, +S2. Absent: diastolic murmur, gallop, rubs, systolic murmur - GI/Abdominal GI/Abdominal exam: Present: normal bowel sounds, soft, tenderness. Absent: distended, guarding, hepatomegaly, rebound Additional comments: Tender to palpation due to vomiting. - Extremities Exam Extremities exam: Present: normal capillary refill, normal inspection, warm, radial pulses palpable and symmetrical. Absent: calf tenderness, cyanotic, pedal edema, tenderness - Neurological Exam Neurological exam: Present: alert, oriented X3, no focal deficits. Absent: altered, facial droop, speech deficit - Skin Skin exam: Present: dry, intact, normal color, warm. Absent: rash - Patient Status Disposition: Home, Self-Care Condition: Good Functional capacity at discharge: independent ambulation Overall status at discharge: patient is progressing back to baseline - Discharge Instructions Follow Up With: Broderick Durán DO [Primary Care Provider] - (Office requests that the patient call for hospital f/u. Thank you) Additional Instructions: Please follow up with Dr. Durán in the next 5-7 days for a recheck Take your medications as directed. Return to the ER as needed for any other problems or concerns. Resume your other medications, your prescriptions are at your pharmacy. Make sure that you stay hydrated - Diet and Activity Activity: increase activity as tolerated Diet: diabetic diet
== END 2017-09-30 18:31 | disposition home or self-care (01) ==
LOC: EMEROO 06:54 → 3ANU 06:54
PROVIDERS: ADMIT Internal Medicine; ATTEND Internal Medicine